=== PATIENT | male | born 1955 | race African-American/Black ===

== ENCOUNTER → 2016-05-28 | Outpatient (CLI) | payer OTHER ==
[2015-05-08 12:15] VITALS: BP 144/65
[~2016-05-28] MED LIST: GLIP5TAB10 PO; METF500T4 PO
[2016-05-28 15:09] LABS: BASO # 0.1 x10^3/uL (0.0-0.2); BASO % 1 % (0-3); EOS % 4 % (0-3); HEMATOCRIT 42.3 % (39.0-53.0); LYMPH # 1.8 x10^3/uL (1.0-4.8); LYMPH % 23 % (24-48); MEAN CORPUSCULAR HEMOGLOBIN 23 pg (25-35); MEAN CORPUSCULAR HGB CONC 31 g/dL (31-37); MEAN CORPUSCULAR VOLUME 74 fL (79-100); MONO % 8 % (0-9); NEUT % 64 % (31-73); PLATELET COUNT 189 x10^3/uL (140-400); RED BLOOD COUNT 5.73 x10^6/uL (4.30-5.70); RED CELL DISTRIBUTION WIDTH 15.7 % (11.5-14.5); WHITE BLOOD COUNT 7.7 x10^3/uL (4.0-11.0)
[2016-05-28 15:48] LABS: ALBUMIN 3.6 g/dL (3.4-5.0); CALCIUM 10.6 mg/dL (8.5-10.1); CREATININE 0.8 mg/dL (0.7-1.3); GFR 119.3; POTASSIUM 4.1 mmol/L (3.5-5.1); TOTAL BILIRUBIN 0.4 mg/dL (0.2-1.0); TOTAL PROTEIN 7.2 g/dL (6.4-8.2)
[2016-05-28 15:49] LABS: CHOLESTEROL/HDL RATIO 3.1
[2016-05-28 16:13] LABS: OVALOCYTES OCC; PLT ESTIMATE ADEQUATE (ADEQUATE); POLYCHROMASIA SLIGHT
[2016-05-28 16:14] LABS: SCHISTOCYTES OCC
== END | disposition home or self-care (01) ==
LOC: LAB 14:42
PROVIDERS: ATTEND Internal Medicine
DX: E11.65 Type 2 diabetes mellitus with hyperglycemia (principal); E21.3 Hyperparathyroidism, unspecified
CPT/HCPCS: 36415; 80053; 80061; 82043; 82550; 82570; 83036; 84443; 85007; 85027

== ENCOUNTER → 2016-12-18 | Outpatient (CLI) | payer OTHER ==
[2015-05-08 12:15] VITALS: BP 144/65
[2016-12-18 12:32] LABS: BASO % 1 % (0-3); EOS % 6 % (0-3); HEMATOCRIT 44.1 % (39.0-53.0); HEMOGLOBIN 13.9 g/dL (13.0-17.5); LYMPH # 1.7 x10^3/uL (1.0-4.8); LYMPH % 28 % (24-48); MEAN CORPUSCULAR HEMOGLOBIN 24 pg (25-35); MEAN CORPUSCULAR HGB CONC 31 g/dL (31-37); MEAN CORPUSCULAR VOLUME 75 fL (79-100); MONO % 9 % (0-9); NEUT % 57 % (31-73); PLATELET COUNT 174 x10^3/uL (140-400); RED CELL DISTRIBUTION WIDTH 15.8 % (11.5-14.5); WHITE BLOOD COUNT 6.2 x10^3/uL (4.0-11.0)
[2016-12-18 13:03] LABS: ALBUMIN/GLOBULIN RATIO 1.1 (1.0-1.7); CALCIUM 10.6 mg/dL (8.5-10.1); CREATININE 0.8 mg/dL (0.7-1.3); GFR 118.9; POTASSIUM 4.2 mmol/L (3.5-5.1); TOTAL BILIRUBIN 0.4 mg/dL (0.2-1.0); TOTAL PROTEIN 7.7 g/dL (6.4-8.2)
[2016-12-18 13:09] LABS: CHOLESTEROL/HDL RATIO 3.2
== END | disposition home or self-care (01) ==
LOC: LAB 12:04
PROVIDERS: ATTEND Internal Medicine
DX: E11.9 Type 2 diabetes mellitus without complications (principal); E21.3 Hyperparathyroidism, unspecified
CPT/HCPCS: 36415; 80053; 80061; 82043; 82550; 82570; 83036; 84443; 85025

== ENCOUNTER → 2017-07-02 | Outpatient (CLI) | payer OTHER ==
[2017-07-02 12:41] LABS: ADD MAN DIFF? NO
[2017-07-02 13:16] LABS: ALBUMIN 3.9 g/dL (3.4-5.0); ALBUMIN/GLOBULIN RATIO 1.1 (1.0-1.7); ALK PHOS 124 U/L (46-116); ALT (SGPT) 33 U/L (16-63); ANION GAP 4 (6-14); AST (SGOT) 24 U/L (15-37); BLOOD UREA NITROGEN 14 mg/dL (8-26); BUN/CREATININE RATIO 18 (6-20); CALCIUM 10.8 mg/dL (8.5-10.1); CARBON DIOXIDE 30 mmol/L (21-32); CHLORIDE 104 mmol/L (98-107); CREATININE 0.8 mg/dL (0.7-1.3); GFR 118.9; GLUCOSE 121 mg/dL (70-99); POTASSIUM 4.2 mmol/L (3.5-5.1); SODIUM 138 mmol/L (136-145); TOTAL BILIRUBIN 0.4 mg/dL (0.2-1.0); TOTAL PROTEIN 7.3 g/dL (6.4-8.2)
[2017-07-02 13:25] LABS: THYROID STIM HORMONE (TSH) 1.246 uIU/mL (0.358-3.74)
[2017-07-02 13:57] LABS: BASO % 1 % (0-3); EOS # 0.3 x10^3/uL (0.0-0.7); EOS % 5 % (0-3); HEMATOCRIT 43.1 % (39.0-53.0); HEMOGLOBIN 13.5 g/dL (13.0-17.5); LYMPH # 1.9 x10^3/uL (1.0-4.8); LYMPH % 28 % (24-48); MEAN CORPUSCULAR HEMOGLOBIN 23 pg (25-35); MEAN CORPUSCULAR HGB CONC 31 g/dL (31-37); MEAN CORPUSCULAR VOLUME 74 fL (79-100); MONO # 0.6 x10^3/uL (0.0-1.1); MONO % 9 % (0-9); NEUT # 3.8 x10^3uL (1.8-7.7); NEUT % 57 % (31-73); PLATELET COUNT 232 x10^3/uL (140-400); RED BLOOD COUNT 5.83 x10^6/uL (4.30-5.70); RED CELL DISTRIBUTION WIDTH 15.1 % (11.5-14.5); WHITE BLOOD COUNT 6.6 x10^3/uL (4.0-11.0)
[2017-07-03 04:21] LABS: HEMOGLOBIN A1C 6.4 % (4.8-5.6)
[2017-07-03 11:24] LABS: CREAT RD UR 38.8 mg/dL (Not Estab.); MICROALB RD UR 3.5 ug/mL (Not Estab.)
== END | disposition home or self-care (01) ==
LOC: LAB 12:25
DX: E11.9 Type 2 diabetes mellitus without complications (principal); I10 Essential (primary) hypertension
CPT/HCPCS: 36415; 80053; 82043; 82570; 83036; 83735; 84443; 85025

== ENCOUNTER → 2017-07-15 | Outpatient (CLI) | payer OTHER ==
[2017-07-15 15:14] LABS: ANION GAP 4 (6-14); BLOOD UREA NITROGEN 16 mg/dL (8-26); CALCIUM 10.9 mg/dL (8.5-10.1); CARBON DIOXIDE 30 mmol/L (21-32); CHLORIDE 105 mmol/L (98-107); CHOLESTEROL 164 mg/dL (0-200); CREATININE 0.9 mg/dL (0.7-1.3); GFR 103.8; GLUCOSE 98 mg/dL (70-99); HDLC 48 mg/dL (40-60); LDLC 102 mg/dL (0-100); NON-HDL CHOLESTEROL 116 mg/dL (0-129); POTASSIUM 4.6 mmol/L (3.5-5.1); SODIUM 139 mmol/L (136-145); TRIGLYCERIDES 72 mg/dL (0-150); VLDLC 14 mg/dL (0-40)
[2017-07-15 15:22] LABS: CHOLESTEROL/HDL RATIO 3.4
== END | disposition home or self-care (01) ==
LOC: LAB 14:23
DX: I10 Essential (primary) hypertension (principal); E78.6 Lipoprotein deficiency
CPT/HCPCS: 36415; 80048; 80061

== ENCOUNTER → 2017-07-17 | Outpatient (CLI) | payer OTHER | END | disposition home or self-care (01) | LOC: US 14:39 | DX: I10 Essential (primary) hypertension (principal); I65.23 Occlusion and stenosis of bilateral carotid arteries | CPT/HCPCS: 93880 ==

== ENCOUNTER → 2017-07-30 | Outpatient (CLI) | payer OTHER | END | disposition home or self-care (01) | LOC: NM 08:01 | DX: I35.0 Nonrheumatic aortic (valve) stenosis (principal); I10 Essential (primary) hypertension; E11.9 Type 2 diabetes mellitus without complications; R01.1 Cardiac murmur, unspecified | CPT/HCPCS: 93017; 93306 ==

== ENCOUNTER 2017-09-09 06:29 | Outpatient (CLI) | payer OTHER ==
[2017-09-09 07:01] LABS: HEMATOCRIT 42.3 % (39.0-53.0); HEMOGLOBIN 13.6 g/dL (13.0-17.5); MEAN CORPUSCULAR HEMOGLOBIN 24 pg (25-35); MEAN CORPUSCULAR HGB CONC 32 g/dL (31-37); MEAN CORPUSCULAR VOLUME 75 fL (79-100); PLATELET COUNT 193 x10^3/uL (140-400); RED BLOOD COUNT 5.63 x10^6/uL (4.30-5.70); WHITE BLOOD COUNT 7.7 x10^3/uL (4.0-11.0)
[2017-09-09 07:15] LABS: ANION GAP 8 (6-14); BLOOD UREA NITROGEN 20 mg/dL (8-26); CALCIUM 10.8 mg/dL (8.5-10.1); CARBON DIOXIDE 29 mmol/L (21-32); CHLORIDE 104 mmol/L (98-107); CREATININE 0.9 mg/dL (0.7-1.3); GFR 103.5; GLUCOSE 112 mg/dL (70-99); POTASSIUM 4.1 mmol/L (3.5-5.1); SODIUM 141 mmol/L (136-145)
[2017-09-09 07:24] LABS: PARTIAL THROMBOPLASTIN TIME 30 SEC (24-38); PROTHROMBIN TIME PATIENT 12.9 SEC (11.7-14.0)
[2017-09-09] MEDS ORDERED: IODIXANOL 320 MG/ML 100 ML VIAL. (07:25)
[2017-09-09] MEDS ORDERED: LIDOCAINE 2% 20 ML VIAL. (07:25)
[2017-09-09] MEDS ORDERED: HEPARIN for ARTERIAL LINE 1,500 ML (07:26)
[2017-09-09] MEDS ORDERED: fentaNYL PF VIAL 100 MCG/2 ML VIAL (08:08)
[2017-09-09] MEDS ORDERED: MIDAZOLAM HCL/PF 2 MG/2 ML VIAL. (08:09)
[2017-09-09] MEDS: IODIXANOL 320 MG/ML 100 ML VIAL. IART (10:02)
[2017-09-09] MEDS: fentaNYL PF VIAL 100 MCG/2 ML VIAL IV (10:03)
[2017-09-09] MEDS: MIDAZOLAM HCL/PF 2 MG/2 ML VIAL. IV (10:03)
[2017-09-09] MEDS: LIDOCAINE 2% 20 ML VIAL. IJ (10:03)
[2017-09-09] MEDS ORDERED: CONTRAST GIVEN. MC (10:15)
[2017-09-09] MEDS ORDERED: NITROGLYCERIN SUBLINGUAL 0.4 MG BOTTLE OF 25. SL (12:00)
[2017-09-09] MEDS ORDERED: 0.9 % SODIUM CHLORIDE 10 ML DISP.SYRIN. IV (12:00)
== END 2017-09-09 12:44 | disposition home or self-care (01) ==
LOC: CCL 06:29
DX: I25.10 Atherosclerotic heart disease of native coronary artery without angina pectoris (principal); I35.0 Nonrheumatic aortic (valve) stenosis; I10 Essential (primary) hypertension; E11.9 Type 2 diabetes mellitus without complications; E78.5 Hyperlipidemia, unspecified; M19.90 Unspecified osteoarthritis, unspecified site; Z79.84 Long term (current) use of oral hypoglycemic drugs
CPT/HCPCS: 36415; 80048; 85027; 85610; 85730; 93453; 93460; 99152; 99153; C1769; C1771; C1892; G0269; J1644; J2250; J3010

== ENCOUNTER → 2018-03-18 | Outpatient (CLI) | payer OTHER ==
[2017-09-09 11:40] VITALS: BP 167/81
[~2018-03-18] MED LIST changes: +CETI10TA22 PO; +LISI-338 PO; +METF500T16 PO; -METF500T4 PO
[2018-03-18 11:37] LABS: BASO # 0.1 x10^3/uL (0.0-0.2); BASO % 1 % (0-3); EOS # 0.4 x10^3/uL (0.0-0.7); EOS % 6 % (0-3); HEMATOCRIT 41.5 % (39.0-53.0); HEMOGLOBIN 13.4 g/dL (13.0-17.5); LYMPH # 1.7 x10^3/uL (1.0-4.8); LYMPH % 25 % (24-48); MEAN CORPUSCULAR HEMOGLOBIN 24 pg (25-35); MEAN CORPUSCULAR HGB CONC 32 g/dL (31-37); MEAN CORPUSCULAR VOLUME 74 fL (79-100); MONO # 0.6 x10^3/uL (0.0-1.1); MONO % 9 % (0-9); NEUT # 4.1 x10^3uL (1.8-7.7); NEUT % 59 % (31-73); PLATELET COUNT 194 x10^3/uL (140-400); RED BLOOD COUNT 5.58 x10^6/uL (4.30-5.70); RED CELL DISTRIBUTION WIDTH 15.5 % (11.5-14.5); WHITE BLOOD COUNT 6.9 x10^3/uL (4.0-11.0)
[2018-03-18 11:57] LABS: CALCIUM 10.9 mg/dL (8.5-10.1); CHOLESTEROL/HDL RATIO 3.1; CREATININE 0.9 mg/dL (0.7-1.3); GFR 103.5; POTASSIUM 4.2 mmol/L (3.5-5.1); TOTAL BILIRUBIN 0.4 mg/dL (0.2-1.0)
[2018-03-18 19:18] LABS: MICRO CREAT RATIO <10.0 mg/g creat (0.0-30.0); MICROALB RD UR <3.0 ug/mL (Not Estab.)
[2018-03-18 21:11] LABS: HEMOGLOBIN A1C 6.4 % (4.8-5.6)
== END | disposition home or self-care (01) ==
LOC: LAB 11:14
PROVIDERS: ATTEND Internal Medicine
DX: E11.9 Type 2 diabetes mellitus without complications (principal)
CPT/HCPCS: 36415; 80053; 80061; 82043; 82550; 82570; 83036; 85025

== ENCOUNTER → 2018-07-17 | Outpatient (CLI) | payer OTHER ==
[2017-09-09 11:40] VITALS: BP 167/81
--- NOTE | 2018-07-17 13:59 | CARD ---
MR#: [id number] Date of Study: 07/17/2018 Ordering Physician: ULYSSES DOMINGUEZ, Referring Physician: ULYSSES DOMINGUEZ, Tech: Hailey Santana MARGOTH APPROVED REPORT EXAM: Two-dimensional and M-mode echocardiogram with Doppler and color Doppler. Other Information Quality : GoodHR: 95bpm Rhythm : NSR INDICATION Aortic Valve Disease 2D DIMENSIONS RVDd2.9 (2.9-3.5cm)Left Atrium(2D)2.6 (1.6-4.0cm) IVSd1.1 (0.7-1.1cm)Aortic Root(2D)3.2 (2.0-3.7cm) LVDd3.8 (3.9-5.9cm)LVOT Diameter1.8 (1.8-2.4cm) PWd0.9 (0.7-1.1cm)LVDs2.4 (2.5-4.0cm) FS (%) 37.1 %SV42.8 ml LVEF(%)67.8 (>50%) M-Mode DIMENSIONS Left Atrium(MM)2.98 (2.5-4.0cm)Aortic Root2.67 (2.2-3.7cm) Aortic Valve AoV Peak Abdullahi.416.2cm/sAoV VTI87.7cm AO Peak GR.69.3mmHgLVOT Peak Abdullahi.100.2cm/s AO Mean GR.40mmHgAVA (VMAX)0.59cm2 DANIELLE (VTI)0.39zs9BI P 1/2 Llru790ue Mitral Valve MV E Kpnqmlrw731.5cm/sMV E Peak Gr.10mmHg MV DECEL DBOH490baET A Qmbwiixe116.5cm/s MV E Mean Gr.5mmHgE/A Ratio0.7 MV A Simqagpg26zr Pulmonary Valve PV Peak Yysszmao261.9cm/s LEFT VENTRICLE The left ventricle is normal size. Proximal septal thickening is noted. The left ventricular systolic function is normal and the ejection fraction is within normal range. The Ejection Fraction is 60-65% . There is normal LV segmental wall motion. Transmitral Doppler flow pattern is Grade I-abnormal rela xation pattern. RIGHT VENTRICLE The right ventricle is normal size. There is normal right ventricular wall thickness. The right ventr icular systolic function is normal. ATRIA The left atrium size is normal. The right atrium size is normal. The interatrial septum is intact wit h no evidence for an atrial septal defect or patent foramen ovale as noted on 2-D or Doppler imaging. AORTIC VALVE The aortic valve is severely calcified. The aortic valve is trileaflet. Doppler and Color Flow reveal ed mild aortic regurgitation. There is severe valvular aortic stenosis. Calculated aortic valve area is 0.6 cm2 with maximum pressure gradient of 69 mmHg and mean pressure gradient of 40 mmHg. MITRAL VALVE The mitral valve is calcified but opens well. There is no evidence of mitral valve prolapse. There is no mitral valve stenosis. Doppler and Color-flow revealed trace mitral regurgitation. TRICUSPID VALVE The tricuspid valve is normal in structure and function. Doppler and Color Flow revealed no tricuspid valve regurgitation noted. There is no tricuspid valve prolapse or vegetation. There is no tricuspid valve stenosis. PULMONIC VALVE The pulmonic valve is not well visualized. Doppler and Color Flow revealed no pulmonic valvular regur gitation. There is no pulmonic valvular stenosis. GREAT VESSELS The aortic root is normal in size. The ascending aorta is normal in size. The IVC is normal in size a nd collapses >50% with inspiration. PERICARDIAL EFFUSION There is no evidence of significant pericardial effusion. Critical Notification Critical Value: No <Conclusion> The left ventricular systolic function is normal and the ejection fraction is within normal range. Th e Ejection Fraction is 60-65%. There is normal LV segmental wall motion. Doppler and Color Flow revealed mild aortic regurgitation. There is severe valvular aortic stenosis. Calculated aortic valve area is 0.6 cm2 with maximum pressu re gradient of 69 mmHg and mean pressure gradient of 40 mmHg. Signed by : Ulysses Dominguez, Electronically Approved : 07/17/2018 13:58:46
== END | disposition home or self-care (01) ==
LOC: ECHO 10:50
PROVIDERS: ATTEND Internal Medicine Cardiovascular Disease
DX: I08.0 Rheumatic disorders of both mitral and aortic valves (principal); R00.8 Other abnormalities of heart beat
CPT/HCPCS: 93306

== ENCOUNTER → 2018-09-15 | Outpatient (CLI) | payer OTHER ==
[2017-09-09 11:40] VITALS: BP 167/81
[2018-09-15 11:32] LABS: BASO % 1 % (0-3); EOS # 0.4 x10^3/uL (0.0-0.7); EOS % 6 % (0-3); HEMATOCRIT 43.5 % (39.0-53.0); HEMOGLOBIN 13.9 g/dL (13.0-17.5); LYMPH % 29 % (24-48); MEAN CORPUSCULAR HEMOGLOBIN 24 pg (25-35); MEAN CORPUSCULAR HGB CONC 32 g/dL (31-37); MEAN CORPUSCULAR VOLUME 74 fL (79-100); MONO # 0.7 x10^3/uL (0.0-1.1); MONO % 10 % (0-9); NEUT # 3.7 x10^3uL (1.8-7.7); NEUT % 54 % (31-73); PLATELET COUNT 202 x10^3/uL (140-400); RED BLOOD COUNT 5.89 x10^6/uL (4.30-5.70); RED CELL DISTRIBUTION WIDTH 15.2 % (11.5-14.5); WHITE BLOOD COUNT 6.8 x10^3/uL (4.0-11.0)
[2018-09-15 11:57] LABS: ALBUMIN/GLOBULIN RATIO 1.1 (1.0-1.7); CALCIUM 10.9 mg/dL (8.5-10.1); CREATININE 0.9 mg/dL (0.7-1.3); GFR 103.1; TOTAL BILIRUBIN 0.4 mg/dL (0.2-1.0); TOTAL PROTEIN 7.8 g/dL (6.4-8.2)
[2018-09-15 11:59] LABS: CHOLESTEROL/HDL RATIO 2.9
[2018-09-15 21:07] LABS: CREAT RD UR 45.4 mg/dL (Not Estab.); MICRO CREAT RATIO 6.8 mg/g creat (0.0-30.0); MICROALB RD UR 3.1 ug/mL (Not Estab.)
[2018-09-16 13:19] LABS: HEMOGLOBIN A1C 7.2 % (4.8-5.6)
== END | disposition home or self-care (01) ==
LOC: LAB 11:01
PROVIDERS: ATTEND Internal Medicine
DX: E78.2 Mixed hyperlipidemia (principal); E11.9 Type 2 diabetes mellitus without complications
CPT/HCPCS: 36415; 80053; 80061; 82043; 82550; 82570; 83036; 84443; 85025

== ENCOUNTER → 2019-01-12 | Outpatient (CLI) | payer OTHER ==
[2017-09-09 11:40] VITALS: BP 167/81
--- NOTE | 2019-01-12 14:30 | RAD ---
MR#: [id number] Date of Study: 01/12/2019 Ordering Physician: ULYSSES DOMINGUEZ Referring Physician: STACIE BUENO Tech: APPROVED REPORT Test Type: Exercise Stress Nurse/Tech: ANDRESSA Nayak Test Indications: severe aortic stenosis Cardiac History: HTN, aortic stenosis, SEE EMR Medications: SEE EMR Medical History: SEE EMR, DM Resting ECG: SR, ST &T ABNORMALITY Resting Heart Rate: 89 bpm Resting Blood Pressure: 159/66mmHg Pretest Chest Pain: No chest pain Nurse/Tech Notes SR, MURMUR NOTED, LUNGS CTA Consent: The procedure was explained to the patient in lay terms. Informed consent was witnessed. Gary eout was entered into [employer]. History and Stress Test performed by RT Marissa (R) (N) Stress Symptoms No chest pain or symptoms. POST EXERCISE Reason for Termination: Reached target heart rate Target HR: 133 Max HR: 135 bpm 101% of Maximum Predicted HR: 133 bpm Exercise duration: 6:36 min:sec, 3 Stage Exercise capacity: 10METs Max Blood Pressure: 174/74mmHg Blood Pressure response to exercise: Normal blood pressure response during stress. Heart Rate response to exercise: NORMAL RESPONSE DURING STRESS Chest Pain: No. Arrhythmia: No. ST Change: Yes. ST DEPRESSION NOTED IN VARIOUS LEADS INTERPRETATION Stress EKG Conclusion: No evidence of acute ischemic changes. Conclusion 1. Baseline EKG with LVH and repol changes 2. Average exercise capacity reaching Stage 3 of the Sreedhar Treadmill protocol. 3. Normal BP response. 4. No significant ischemic EKG changes. 5. Low to moderate risk study Signed by : Ulysses Dominguez, Electronically Approved : 01/12/2019 14:29:59
== END | disposition home or self-care (01) ==
LOC: NM 08:47
PROVIDERS: ATTEND Internal Medicine Cardiovascular Disease
DX: I35.0 Nonrheumatic aortic (valve) stenosis (principal); I10 Essential (primary) hypertension
CPT/HCPCS: 93017

== ENCOUNTER → 2019-04-19 | Outpatient (CLI) | payer OTHER ==
[2017-09-09 11:40] VITALS: BP 167/81
[~2019-04-19] MED LIST changes: -CETI10TA22 PO; +CETI10TA24 PO
--- NOTE | 2019-04-19 10:19 | CARD ---
MR#: [id number] Date of Study: 04/19/2019 Ordering Physician: ULYSSES DOMINGUEZ, Referring Physician: ULYSSES DOMINGUEZ, Tech: Yasmine Santos APPROVED REPORT EXAM: Two-dimensional and M-mode echocardiogram with Doppler and color Doppler. Other Information Quality : AverageHR: 94bpm INDICATION Hypertension/HCVD RISK FACTORS Diabetes 2D DIMENSIONS RVDd3.1 (2.9-3.5cm)Left Atrium(2D)3.2 (1.6-4.0cm) IVSd0.9 (0.7-1.1cm)Aortic Root(2D)3.2 (2.0-3.7cm) LVDd4.4 (3.9-5.9cm)LVOT Diameter1.9 (1.8-2.4cm) PWd1.0 (0.7-1.1cm)LVDs3.1 (2.5-4.0cm) FS (%) 28.8 %SV49.0 ml LVEF(%)55.6 (>50%) Aortic Valve AoV Peak Abdullahi.387.6cm/sAoV VTI77.1cm AO Peak GR.60.1mmHgLVOT Peak Abdullahi.102.1cm/s LVOT VTI 24.46cmAO Mean GR.34mmHg DANIELLE (VMAX)0.13jt5EWG (VTI)0.94cm2 AI P 1/2 Aulr652oh Mitral Valve MV E Ylthyvbn914.6cm/sMV DECEL TQVE825dv MV A Ccomxcyx350.0cm/sMV DKS87rw E/A Ratio0.8MVA (PHT)3.50cm2 TDI E/Lateral E'17.5E/Medial E'16.3 Tricuspid Valve TR P. Vcsfpepy074ez/sRAP AINXJEYL7fqWv TR Peak Gr.60zrBaWZAY21axQh Pulmonary Vein S1 Jejswyae41.3cm/sD2 Meibyywu98.8cm/s PVa hdeccnzj926udyr LEFT VENTRICLE The left ventricle is normal size. There is normal left ventricular wall thickness. The left ventricu lar systolic function is normal. The Ejection Fraction is 60-65%. There is normal LV segmental wall m otion. Transmitral Doppler flow pattern is Grade I-abnormal relaxation pattern. RIGHT VENTRICLE The right ventricle is normal size. There is normal right ventricular wall thickness. The right ventr icular systolic function is normal. ATRIA The left atrium size is normal. The right atrium size is normal. The interatrial septum is intact wit h no evidence for an atrial septal defect or patent foramen ovale as noted on 2-D or Doppler imaging. AORTIC VALVE The aortic valve is severely calcified. Doppler and Color Flow revealed mild to moderate aortic regur gitation. Calculated aortic valve area is .92 cm2 with maximum pressure gradient of 68 mmHg and mean pressure gradient of 39 mmHg. There is moderate to severe valvular aortic stenosis. MITRAL VALVE The mitral valve is moderately thickened. There is no evidence of mitral valve prolapse. There is no mitral valve stenosis. Doppler and Color-flow revealed trace mitral regurgitation. TRICUSPID VALVE The tricuspid valve is normal in structure and function. Doppler and Color Flow revealed trace tricus pid regurgitation with an estimated PAP of 51 mmHg. There is no tricuspid valve stenosis. PULMONIC VALVE The pulmonic valve is not well visualized. Doppler and Color Flow revealed no pulmonic valvular regur gitation. GREAT VESSELS The aortic root is normal in size. The IVC is normal in size and collapses >50% with inspiration. PERICARDIAL EFFUSION There is no evidence of significant pericardial effusion. Critical Notification Critical Value: No <Conclusion> The left ventricular systolic function is normal. The Ejection Fraction is 60-65%. There is normal LV segmental wall motion. Transmitral Doppler flow pattern is Grade I-abnormal relaxation pattern. Moderate to severe valvular aortic stenosis with calculated DANIELLE 0.92 cm2 with mean pressure gradient of 39 mmHg. Mild to moderate aortic regurgitation. Trace mitral regurgitation. Trace tricuspid regurgitation with an estimated PAP of 51 mmHg. There is no evidence of significant pericardial effusion. Signed by : Ebenezer Proctor, Electronically Approved : 04/19/2019 10:19:02
== END | disposition home or self-care (01) ==
LOC: ECHO 08:26
PROVIDERS: ATTEND Internal Medicine Cardiovascular Disease
DX: I06.1 Rheumatic aortic insufficiency (principal); I11.9 Hypertensive heart disease without heart failure; E11.9 Type 2 diabetes mellitus without complications
CPT/HCPCS: 93306

== ENCOUNTER → 2019-05-17 | Outpatient (CLI) | payer OTHER ==
[2017-09-09 11:40] VITALS: BP 167/81
[2019-05-17 12:23] LABS: BASO % 1 % (0-3); EOS # 0.3 x10^3/uL (0.0-0.7); EOS % 5 % (0-3); HEMATOCRIT 40.9 % (39.0-53.0); LYMPH # 1.5 x10^3/uL (1.0-4.8); LYMPH % 26 % (24-48); MEAN CORPUSCULAR HEMOGLOBIN 23 pg (25-35); MEAN CORPUSCULAR HGB CONC 32 g/dL (31-37); MEAN CORPUSCULAR VOLUME 74 fL (79-100); MONO # 0.5 x10^3/uL (0.0-1.1); MONO % 9 % (0-9); NEUT # 3.5 x10^3/uL (1.8-7.7); NEUT % 59 % (31-73); PLATELET COUNT 187 x10^3/uL (140-400); RED BLOOD COUNT 5.54 x10^6/uL (4.30-5.70); WHITE BLOOD COUNT 5.9 x10^3/uL (4.0-11.0)
[2019-05-17 12:28] LABS: ALBUMIN 3.7 g/dL (3.4-5.0); CALCIUM 10.7 mg/dL (8.5-10.1); CREATININE 0.9 mg/dL (0.7-1.3); GFR 103.1; POTASSIUM 4.1 mmol/L (3.5-5.1); TOTAL BILIRUBIN 0.5 mg/dL (0.2-1.0); TOTAL PROTEIN 7.3 g/dL (6.4-8.2)
[2019-05-17 12:30] LABS: CHOLESTEROL/HDL RATIO 3.4
[2019-05-17 23:08] LABS: HEMOGLOBIN A1C 9.2 % (4.8-5.6)
== END | disposition home or self-care (01) ==
LOC: LAB 11:46
PROVIDERS: ATTEND Internal Medicine
DX: E11.9 Type 2 diabetes mellitus without complications (principal); E78.2 Mixed hyperlipidemia
CPT/HCPCS: 36415; 80053; 80061; 82043; 82550; 83036; 84443; 85025

== ENCOUNTER 2019-06-10 03:09 | Emergency (ER) | payer OTHER ==
[~2019-06-10] VITALS: Ht 175.3 cm; Wt 77.3 kg
[2019-06-10] MEDS ORDERED: PRED50TA PO (03:22)
[2019-06-10] MEDS ORDERED: AZIT250T PO (03:22)
--- NOTE | 2019-06-10 03:23 | PHYS DOC ---
Past Medical History Past Medical History: No Pertinent History Past Surgical History: No Surgical History Smoking Status: Never Smoker Alcohol Use: Occasionally Drug Use: None Adult General Chief Complaint Chief Complaint: Congestion HPI HPI Patient is a 63 year old white male who presents with complaint of sinus congestion and pressure 2 days duration with productive green/yellow sputum. No fever or chills. Has tried walg-deu-txpdztq medications without relief. No sick contacts. No cough or shortness of breath. Review of Systems Review of Systems All other ROS is negative unless otherwise stated in HPI Allergies Allergies Allergies Coded Allergies Type Severity Reaction Last Updated Verified No Known Allergies Allergy Unknown 05/08/15 Yes Physical Exam Physical Exam See above Constitutional: Well developed, well nourished, no acute distress, non-toxic appearance. [] HENT: Normocephalic, atraumatic, bilateral external ears normal, oropharynx moist, no oral exudates, erythematous nasal mucosa bilaterally with moderate congestion. No posterior pharynx erythema. Positive maxillary sinus tenderness. Eyes: PERRLA, EOMI, conjunctiva normal, no discharge. [] Neck: Normal range of motion, no tenderness, supple, no stridor. [] Cardiovascular:Heart rate regular rhythm, no murmur [] Lungs & Thorax: Bilateral breath sounds clear to auscultation [] Abdomen: Bowel sounds normal, soft, no tenderness, no masses, no pulsatile masses. [] Skin: Warm, dry, no erythema, no rash. [] Back: No tenderness, no CVA tenderness. [] Extremities: No tenderness, no cyanosis, no clubbing, ROM intact, no edema. [] Neurologic: Alert and oriented X 3, normal motor function, normal sensory function, no focal deficits noted. [] EKG EKG [] Radiology/Procedures Radiology/Procedures [] Course & Med Decision Making Course & Med Decision Making Pertinent Labs and Imaging studies reviewed. (See chart for details) [] Dragon Disclaimer Dragon Disclaimer This electronic medical record was generated, in whole or in part, using a voice recognition dictation system. Departure Departure Impression: Primary Impression: Acute sinusitis Disposition: 01 HOME, SELF-CARE Condition: STABLE Referrals: ELIAN LEON MD (PCP) Patient Instructions: Sinusitis Scripts Azithromycin (ZITHROMAX) 250 Mg Tablet 250 MG PO as directed for ANTI-BIOTIC, #6 TAB 0 Refills Take 2 PO x 1 days Then take 1 PO q 24 hour for the next 4 days Prov: KAYDEN CARLTON DO 06/10/19 Prednisone (PREDNISONE) 50 Mg Tablet 1 TAB PO DAILY, #5 TAB Prov: KAYDEN CARLTON DO 06/10/19 KAYDEN CARLTON DO Jun 10, 2019 03:23
[2019-06-10 03:50] VITALS: BP 191/84
== END 2019-06-10 03:50 | disposition home or self-care (01) ==
LOC: ER 03:09
DX: J01.00 Acute maxillary sinusitis, unspecified (principal)
CPT/HCPCS: 99283

== ENCOUNTER → 2019-06-28 | Outpatient (CLI) | payer OTHER ==
[2019-06-10 03:50] VITALS: BP 191/84
[~2019-06-28] MED LIST changes: +AZIT250T PO; +PRED50TA PO
[2019-06-28 10:46] LABS: CALCIUM 10.5 mg/dL (8.5-10.1); CREATININE 0.8 mg/dL (0.7-1.3); GFR 118.1; MAGNESIUM 1.7 mg/dL (1.8-2.4); PHOSPHORUS 2.7 mg/dL (2.6-4.7); POTASSIUM 4.3 mmol/L (3.5-5.1)
[2019-06-28 22:07] LABS: CREATININE PTH 0.81 mg/dL (0.76-1.27); PHOSPHORUS PTH 2.7 mg/dL (2.8-4.1); PTH INTACT 122 pg/mL (15-65)
== END | disposition home or self-care (01) ==
LOC: LAB 09:58
PROVIDERS: ATTEND Internal Medicine
DX: E83.52 Hypercalcemia (principal); N40.1 Benign prostatic hyperplasia with lower urinary tract symptoms
CPT/HCPCS: 36415; 80048; 83735; 83970; 84100; 84153; G0103

== ENCOUNTER → 2019-09-23 | Outpatient (CLI) | payer OTHER ==
[2019-09-23 11:49] LABS: ALBUMIN 3.7 g/dL (3.4-5.0); ALBUMIN/GLOBULIN RATIO 0.9 (1.0-1.7); CALCIUM 10.3 mg/dL (8.5-10.1); MAGNESIUM 1.9 mg/dL (1.8-2.4); POTASSIUM 4.2 mmol/L (3.5-5.1); TOTAL BILIRUBIN 0.5 mg/dL (0.2-1.0); TOTAL PROTEIN 7.6 g/dL (6.4-8.2)
[2019-09-23 11:50] LABS: BASO % 0 % (0-3); CHOLESTEROL/HDL RATIO 2.8; EOS # 0.3 x10^3/uL (0.0-0.7); EOS % 4 % (0-3); HEMATOCRIT 39.8 % (39.0-53.0); HEMOGLOBIN 12.7 g/dL (13.0-17.5); LYMPH # 1.6 x10^3/uL (1.0-4.8); LYMPH % 25 % (24-48); MEAN CORPUSCULAR HEMOGLOBIN 24 pg (25-35); MEAN CORPUSCULAR HGB CONC 32 g/dL (31-37); MEAN CORPUSCULAR VOLUME 75 fL (79-100); MONO # 0.6 x10^3/uL (0.0-1.1); MONO % 9 % (0-9); NEUT # 3.9 x10^3/uL (1.8-7.7); NEUT % 62 % (31-73); PLATELET COUNT 183 x10^3/uL (140-400); RED BLOOD COUNT 5.33 x10^6/uL (4.30-5.70); RED CELL DISTRIBUTION WIDTH 15.1 % (11.5-14.5); WHITE BLOOD COUNT 6.3 x10^3/uL (4.0-11.0)
== END | disposition home or self-care (01) ==
LOC: LAB 11:04
PROVIDERS: ATTEND Internal Medicine
DX: E11.9 Type 2 diabetes mellitus without complications (principal); E83.52 Hypercalcemia
CPT/HCPCS: 36415; 80053; 80061; 82043; 82550; 83036; 83735; 85025

== ENCOUNTER → 2019-10-19 | Outpatient (CLI) | payer OTHER ==
--- NOTE | 2019-10-19 13:38 | CARD ---
MR#: [id number] Date of Study: 10/19/2019 Ordering Physician: ULYSSES DOMINGUEZ, Referring Physician: ULYSSES DOMINGUEZ, Tech: Sybil Gonzalez [facility] APPROVED REPORT EXAM: Two-dimensional and M-mode echocardiogram with Doppler and color Doppler. Other Information Quality : Fair INDICATION Aortic Stenosis 2D DIMENSIONS RVDd2.6 (2.9-3.5cm)Left Atrium(2D)2.8 (1.6-4.0cm) IVSd0.9 (0.7-1.1cm)Aortic Root(2D)3.1 (2.0-3.7cm) LVDd4.1 (3.9-5.9cm)LVOT Diameter2.1 (1.8-2.4cm) PWd0.9 (0.7-1.1cm)LVDs2.8 (2.5-4.0cm) FS (%) 32.4 %SV44.8 ml LVEF(%)61.2 (>50%) M-Mode DIMENSIONS Aortic Cusp Exc1.07 (1.5-2.0cm) Aortic Valve AoV Peak Abdullahi.368.0cm/sAoV VTI83.8cm AO Peak GR.54.2mmHgLVOT Peak Abdullahi.113.4cm/s LVOT VTI 26.89cmAO Mean GR.30mmHg DANIELLE (VMAX)1.08bj0CSS (VTI)1.12cm2 AI P 1/2 Dgfl747ao Mitral Valve MV E Todbilqk148.4cm/sMV DECEL QLOY908xl MV A Hortrdun512.6cm/sMV YDQ64lr E/A Ratio0.9MVA (PHT)2.68cm2 TDI E/Lateral E'18.1E/Medial E'22.8 Pulmonary Vein S1 Xmrpdqqn12.0cm/sD2 Nsibnycr78.3cm/s LEFT VENTRICLE The left ventricle is normal size. There is normal left ventricular wall thickness. The left ventricu lar systolic function is normal. The Ejection Fraction is 60-65%. There is normal LV segmental wall m otion. Transmitral Doppler flow pattern is Grade I-abnormal relaxation pattern. RIGHT VENTRICLE The right ventricle is normal size. The right ventricular systolic function is normal. ATRIA The left atrium size is normal. The right atrium size is normal. The interatrial septum is intact wit h no evidence for an atrial septal defect or patent foramen ovale as noted on 2-D or Doppler imaging. AORTIC VALVE The aortic valve is calcified and displays decreased opening. Doppler and Color Flow revealed mild to moderate aortic regurgitation. Calculated aortic valve area is 1.16 cm2 with maximum pressure gradie nt of 56 mmHg and mean pressure gradient of 33 mmHg. Doppler and color-flow analysis revealed moderat e aortic stenosis. MITRAL VALVE The mitral valve is calcified but opens well. Mitral annular calcification is mild to moderate. There is no evidence of mitral valve prolapse. There is no mitral valve stenosis. Doppler and Color-flow r evealed trace mitral regurgitation. TRICUSPID VALVE The tricuspid valve is normal in structure and function. Doppler and Color Flow revealed trace tricus pid valve regurgitation. There is no tricuspid valve stenosis. PULMONIC VALVE The pulmonic valve is not well visualized. Doppler and Color Flow revealed no pulmonic valvular regur gitation. There is no pulmonic valvular stenosis. GREAT VESSELS The aortic root is normal in size. The ascending aorta is not well seen. The IVC is normal in size an d collapses >50% with inspiration. PERICARDIAL EFFUSION There is no evidence of significant pericardial effusion. Critical Notification Critical Value: No <Conclusion> The left ventricular systolic function is normal. The Ejection Fraction is 60-65%. There is normal LV segmental wall motion. Transmitral Doppler flow pattern is Grade I-abnormal relaxation pattern. Moderate aortic stenosis. Calculated DANIELLE is 1.16 cm2 with maximum pressure gradient of 56 mmHg and m malick pressure gradient of 33 mmHg. Mild to moderate aortic regurgitation. Trace mitral regurgitation. Trace tricuspid valve regurgitation. There is no evidence of significant pericardial effusion. Signed by : Ebenezer Proctor, Electronically Approved : 10/19/2019 13:37:45
== END | disposition home or self-care (01) ==
LOC: ECHO 08:37
PROVIDERS: ATTEND Internal Medicine Cardiovascular Disease
DX: I08.0 Rheumatic disorders of both mitral and aortic valves (principal); I10 Essential (primary) hypertension
CPT/HCPCS: 93306

== ENCOUNTER → 2019-10-28 | Outpatient (CLI) | payer OTHER ==
[~2019-10-28] MED LIST changes: -CETI10TA24 PO; +CETI10TA74 PO
--- NOTE | 2019-10-28 13:55 | RAD ---
Thyroid ultrasound 10/28/2019 CLINICAL HISTORY: Hypercalcemia. TECHNIQUE: A real-time ultrasound examination of the thyroid gland was performed. Multiple images were obtained. FINDINGS: No previous imaging studies are available for comparison. The thyroid gland is mildly enlarged and heterogeneous. The right lobe of the thyroid gland measures 4.6 x 2.0 x 1.8 cm in longitudinal, transverse, and AP dimensions. The left lobe of the thyroid gland measures 3.2 x 1.5 x 1.1 cm in size. The isthmus measures 2.9 mm in thickness. Numerous nodules which vary from 3 mm to 1.3 cm in size are seen scattered throughout both lobes of the thyroid gland consistent with a multinodular goiter. The majority of these nodules are cystic, spongiform or slightly complex. The largest nodule (which measures 1.3 cm greatest diameter) is well-defined and is complex with a hyperechoic solid component. It is located within the inferior lateral aspect of the right lobe of the thyroid gland. These nodules are consistent with TI-RADS Category 1 and 2 (benign) lesions. No abnormal soft tissue mass is seen to suggest evidence of a parathyroid adenoma. IMPRESSION: 1. Findings consistent with a multinodular goiter. 2. There is no sonographic evidence of a parathyroid adenoma. Electronically signed by: Sergey Wood MD (10/28/2019 1:52 PM) [id number]
== END | disposition home or self-care (01) ==
LOC: US 09:42
PROVIDERS: ATTEND Internal Medicine
DX: E04.2 Nontoxic multinodular goiter (principal); E11.9 Type 2 diabetes mellitus without complications; E83.52 Hypercalcemia
CPT/HCPCS: 76536

== ENCOUNTER → 2020-01-13 | Outpatient (CLI) | payer OTHER ==
[2020-01-13 11:15] LABS: ALBUMIN 3.7 g/dL (3.4-5.0); ALBUMIN/GLOBULIN RATIO 1.1 (1.0-1.7); CALCIUM 10.4 mg/dL (8.5-10.1); CREATININE 0.8 mg/dL (0.7-1.3); GFR 117.8; POTASSIUM 4.4 mmol/L (3.5-5.1); TOTAL BILIRUBIN 0.4 mg/dL (0.2-1.0); TOTAL PROTEIN 7.1 g/dL (6.4-8.2)
[2020-01-14 00:08] LABS: HEMOGLOBIN A1C 7.1 % (4.8-5.6)
== END ==
LOC: LAB 10:13
PROVIDERS: ATTEND Internal Medicine
DX: E21.3 Hyperparathyroidism, unspecified (principal); E11.65 Type 2 diabetes mellitus with hyperglycemia
CPT/HCPCS: 36415; 80053; 83036

== ENCOUNTER → 2020-06-13 | Outpatient (CLI) | payer OTHER ==
[~2020-06-13] MED LIST changes: -LISI-338 PO; +LISI-517 PO
[2020-06-13 11:01] LABS: BASO % 0 % (0-3); EOS # 0.3 x10^3/uL (0.0-0.7); EOS % 4 % (0-3); HEMATOCRIT 39.5 % (39.0-53.0); HEMOGLOBIN 12.6 g/dL (13.0-17.5); LYMPH # 1.5 x10^3/uL (1.0-4.8); LYMPH % 25 % (24-48); MEAN CORPUSCULAR HEMOGLOBIN 24 pg (25-35); MEAN CORPUSCULAR HGB CONC 32 g/dL (31-37); MEAN CORPUSCULAR VOLUME 74 fL (79-100); MONO # 0.5 x10^3/uL (0.0-1.1); MONO % 9 % (0-9); NEUT # 3.7 x10^3/uL (1.8-7.7); NEUT % 62 % (31-73); PLATELET COUNT 184 x10^3/uL (140-400); RED BLOOD COUNT 5.36 x10^6/uL (4.30-5.70); RED CELL DISTRIBUTION WIDTH 14.8 % (11.5-14.5); WHITE BLOOD COUNT 5.9 x10^3/uL (4.0-11.0)
[2020-06-13 11:22] LABS: ALBUMIN 3.7 g/dL (3.4-5.0); CALCIUM 10.4 mg/dL (8.5-10.1); POTASSIUM 4.5 mmol/L (3.5-5.1); TOTAL BILIRUBIN 0.4 mg/dL (0.2-1.0); TOTAL PROTEIN 7.3 g/dL (6.4-8.2)
[2020-06-13 11:23] LABS: MAGNESIUM 1.8 mg/dL (1.8-2.4)
[2020-06-13 11:24] LABS: CHOLESTEROL/HDL RATIO 2.9
[2020-06-13 21:08] LABS: CREAT RD UR 93.7 mg/dL (Not Estab.); MICROALB RD UR 8.3 ug/mL (Not Estab.)
[2020-06-14 01:10] LABS: HEMOGLOBIN A1C 7.7 % (4.8-5.6)
== END ==
LOC: LAB 10:34
PROVIDERS: ATTEND Internal Medicine
DX: E11.65 Type 2 diabetes mellitus with hyperglycemia (principal); E04.2 Nontoxic multinodular goiter; I10 Essential (primary) hypertension
CPT/HCPCS: 80053; 80061; 82043; 82550; 82570; 83036; 83735; 84443; 85025

== ENCOUNTER → 2020-09-06 | Outpatient (CLI) | payer OTHER ==
--- NOTE | 2020-09-07 18:07 | CARD ---
MR#: [id number] Date of Study: 09/06/2020 Ordering Physician: ULYSSES DOMINGUEZ, Referring Physician: ULYSSES DOMINGUEZ, Tech: APPROVED REPORT EXAM: Two-dimensional and M-mode echocardiogram with Doppler and color Doppler. Other Information Quality : AverageHR: 91bpm Rhythm : NSR INDICATION Dyspnea RISK FACTORS Hypertension Hyperlipidemia Diabetes 2D DIMENSIONS RVDd2.9 (2.9-3.5cm)Left Atrium(2D)3.2 (1.6-4.0cm) IVSd1.1 (0.7-1.1cm)Aortic Root(2D)3.3 (2.0-3.7cm) LVDd3.6 (3.9-5.9cm)LVOT Diameter2.1 (1.8-2.4cm) PWd1.2 (0.7-1.1cm)LVDs2.9 (2.5-4.0cm) FS (%) 19.3 %SV22.8 ml Aortic Valve AoV Peak Abdullahi.402.0cm/sAoV TIG196.7cm AO Peak GR.64.6mmHgLVOT Peak Abdullahi.104.7cm/s AO Mean GR.39mmHgAVA (VMAX)0.93cm2 AI P 1/2 Jrti648qw Mitral Valve MV E Ufvanmid62.9cm/sMV DECEL ZZAB034am MV A Lyhadxep220.1cm/sE/A Ratio0.6 Pulmonary Valve PV Peak Bbgjlwcp651.2cm/s Tricuspid Valve RAP VYOCHXXB4esXl Pulmonary Vein S1 Ppbrqgpf57.0cm/sD2 Nbjhzakm16.8cm/s PVa aihtbyjz979fnsg LEFT VENTRICLE The left ventricle is normal size. There is mild concentric left ventricular hypertrophy. The left ve ntricular systolic function is normal and the ejection fraction is within normal range. Torcular ejec tion fraction is 55 to 60%. No regional wall motion abnormalities noted. Tissue Doppler imaging revea ls abnormal left ventricular diastolic dysfunction. No left ventricle thrombus noted on this study. T here is no ventricular septal defect visualized. There is no left ventricular aneurysm. There is no m ass noted in the left ventricle. RIGHT VENTRICLE The right ventricle is normal size. There is normal right ventricular wall thickness. The right ventr icular systolic function is normal. ATRIA The left atrium size is normal. The right atrium size is normal. The interatrial septum is intact wit h no evidence for an atrial septal defect or patent foramen ovale as noted on 2-D or Doppler imaging. AORTIC VALVE The aortic valve is severely calcified. Doppler and Color Flow revealed trace to mild aortic regurgit ation. The aortic valve is heavily calcified with difficult imaging. There is moderately severe to s evere aortic stenosis. MITRAL VALVE Mitral annular calcification is mild. There is no evidence of mitral valve prolapse. There is no mitr al valve stenosis. Doppler and Color-flow revealed trace mitral regurgitation. TRICUSPID VALVE The tricuspid valve is normal in structure and function. Doppler and Color Flow revealed trace tricus pid regurgitation. PULMONIC VALVE The pulmonary valve is normal in structure and function. GREAT VESSELS The aortic root is normal in size. The ascending aorta is normal in size. The pulmonary artery is nor mal. The IVC is normal in size and collapses >50% with inspiration. PERICARDIAL EFFUSION There is no evidence of significant pericardial effusion. Critical Notification Critical Value: No <Conclusion> The left ventricle is normal size. The left ventricular systolic function is normal and the ejection fraction is within normal range. Torcular ejection fraction is 55 to 60%. There is mild concentric left ventricular hypertrophy. Doppler and Color Flow revealed trace to mild aortic regurgitation. The aortic valve is heavily calcified with difficult imaging. There is moderately severe to severe aortic stenosis. Doppler and Color-flow revealed trace mitral regurgitation. Doppler and Color Flow revealed trace tricuspid regurgitation. Signed by : Silvano Ibrahim MD Electronically Approved : 09/07/2020 18:07:02
== END ==
LOC: ECHO 08:51
PROVIDERS: ATTEND Internal Medicine Cardiovascular Disease
DX: I08.0 Rheumatic disorders of both mitral and aortic valves (principal)
CPT/HCPCS: 93306

== ENCOUNTER → 2021-01-11 | Outpatient (CLI) | payer OTHER ==
[2021-01-11 08:42] LABS: BASO % 1 % (0-3); EOS # 0.2 x10^3/uL (0.0-0.7); EOS % 4 % (0-3); HEMATOCRIT 38.6 % (39.0-53.0); LYMPH # 1.6 x10^3/uL (1.0-4.8); LYMPH % 26 % (24-48); MEAN CORPUSCULAR HEMOGLOBIN 23 pg (25-35); MEAN CORPUSCULAR HGB CONC 31 g/dL (31-37); MEAN CORPUSCULAR VOLUME 75 fL (79-100); MONO # 0.6 x10^3/uL (0.0-1.1); MONO % 9 % (0-9); NEUT # 3.9 x10^3/uL (1.8-7.7); NEUT % 61 % (31-73); PLATELET COUNT 207 x10^3/uL (140-400); RED BLOOD COUNT 5.16 x10^6/uL (4.30-5.70); RED CELL DISTRIBUTION WIDTH 15.4 % (11.5-14.5); WHITE BLOOD COUNT 6.4 x10^3/uL (4.0-11.0)
[2021-01-11 09:12] LABS: ALBUMIN 3.7 g/dL (3.4-5.0); CALCIUM 10.2 mg/dL (8.5-10.1); CREATININE 0.9 mg/dL (0.7-1.3); GFR 102.5; TOTAL BILIRUBIN 0.4 mg/dL (0.2-1.0); TOTAL PROTEIN 7.4 g/dL (6.4-8.2)
[2021-01-11 09:15] LABS: CHOLESTEROL/HDL RATIO 3.6
[2021-01-11 09:22] LABS: THYROID STIM HORMONE (TSH) 1.709 uIU/mL (0.358-3.74)
[2021-01-12 00:08] LABS: CREAT RD UR 59.3 mg/dL (Not Estab.); HEMOGLOBIN A1C 6.6 % (4.8-5.6); MICROALB RD UR 6.7 ug/mL (Not Estab.)
== END ==
LOC: LAB 08:07
PROVIDERS: ATTEND Internal Medicine
DX: E11.65 Type 2 diabetes mellitus with hyperglycemia (principal); E04.2 Nontoxic multinodular goiter
CPT/HCPCS: 80053; 80061; 82043; 82550; 82570; 83036; 84439; 84443; 85025

== ENCOUNTER 2021-03-27 21:01 | Inpatient (IN) | payer OTHER ==
[~2021-03-27] VITALS: Ht 170.2 cm; Wt 80.7 kg
[~2021-03-27 21:01] MED LIST changes: -LISI-517 PO; +LISI5TAB15 PO
[2021-03-27] MEDS ORDERED: ONDANSETRON PF 4 MG/2 ML VIAL. ONE (23:00)
[2021-03-27 23:07] LABS: BASO % 0 % (0-3); EOS % 0 % (0-3); HEMATOCRIT 40.7 % (39.0-53.0); HEMOGLOBIN 12.7 g/dL (13.0-17.5); LYMPH # 0.6 x10^3/uL (1.0-4.8); LYMPH % 4 % (24-48); MEAN CORPUSCULAR HEMOGLOBIN 23 pg (25-35); MEAN CORPUSCULAR HGB CONC 31 g/dL (31-37); MEAN CORPUSCULAR VOLUME 74 fL (79-100); MONO # 0.6 x10^3/uL (0.0-1.1); MONO % 5 % (0-9); NEUT # 12.1 x10^3/uL (1.8-7.7); NEUT % 91 % (31-73); PLATELET COUNT 197 x10^3/uL (140-400); RED BLOOD COUNT 5.51 x10^6/uL (4.30-5.70); WHITE BLOOD COUNT 13.3 x10^3/uL (4.0-11.0)
[2021-03-27 23:12] LABS: BILIRUBIN,URINE NEGATIVE (NEG); CLARITY,URINE CLEAR; COLOR,URINE YELLOW; NITRITE,URINE NEGATIVE (NEG); PROTEIN,URINE 30 mg/dL (NEG-TRACE); UROBILINOGEN,URINE 0.2 mg/dL (0.2 mg/dL)
[2021-03-27 23:19] LABS: CALCIUM 10.9 mg/dL (8.5-10.1); CREATININE 0.9 mg/dL (0.7-1.3); GFR 102.5; POTASSIUM 3.9 mmol/L (3.5-5.1)
[2021-03-27 23:25] LABS: ALBUMIN 3.9 g/dL (3.4-5.0); ALBUMIN/GLOBULIN RATIO 0.9 (1.0-1.7); TOTAL BILIRUBIN 0.5 mg/dL (0.2-1.0); TOTAL PROTEIN 8.1 g/dL (6.4-8.2)
[2021-03-27 23:26] LABS: BACTERIA,URINE 0 /HPF (0-FEW)
[2021-03-27] MEDS ORDERED: IV NORMAL SALINE 1000ML BAG 1,000 ML IV ONE (23:30)
[2021-03-27] MEDS ORDERED: ONDANSETRON PF 4 MG/2 ML VIAL. IVP ONE (23:30)
[2021-03-27] MEDS ORDERED: MORPHINE SULFATE 4 MG/ML INJ. IVP ONE (23:30)
[2021-03-27 23:52] LABS: % BANDS 9 % (0-9); % LYMPHS 3 % (24-48); % MONOS 1 % (0-10); % SEGS 87 % (35-66)
[2021-03-27 23:53] LABS: MICROCYTOSIS SLIGHT; PLT ESTIMATE ADEQUATE (ADEQUATE); POLYCHROMASIA SLIGHT
[2021-03-28] VITALS (7 sets, daily range): BP systolic 137–157; BP diastolic 63–75
--- NOTE | 2021-03-28 00:08 | RAD ---
EXAM: RIGHT UPPER QUADRANT ULTRASOUND. HISTORY: Right upper quadrant/gastric pain. Vomiting. COMPARISON: None. FINDINGS: Sonographic evaluation of the right upper quadrant was performed. The liver appears normal in parenchymal echotexture. There are no focal lesions. There are gallstones in the gallbladder neck. There is no pericholecystic fluid or wall thickening. T he gallbladder is distended. There is no sonographic Ellis sign. The common duct measures 5 mm. The visualized portions of the head and body of the pancreas reveal no abnormality. The right kidney measures 10.4 cm. Cortical thickness and echogenicity are preserved. There is no hyd ronephrosis. The visualized portions of the abdominal aorta and inferior vena cava are grossly patent and normal i n caliber. IMPRESSION: 1. Cholelithiasis with gallbladder distention. No pericholecystic fluid or wall thickening. Electronically signed by: Hernandez Camarena MD (03/28/2021 12:06 AM) [facility]
--- NOTE | 2021-03-28 00:37 | EKG ---
[facility] [address] [place] [address] Test Date: 2021-03-27 Test Time: 23:16:12 Pat Name: VEL LOCKETT Department: Room: Gender: M Employment Counselor: : 1955 Requested By: JUANA MALLORY Order Number: [id number] Reading MD: Andres Mendez MD Measurements Intervals [place] Rate: 105 P: 34 AK: 202 QRS: 58 QRSD: 84 T: -88 QT: 300 QTc: 400 Interpretive Statements SINUS TACHYCARDIA PROLONGED AK INTERVAL LVH WITH REPOLARIZATION ABNORMALITY ABNORMAL ECG Electronically Signed On 04-02-2021 14:58:18 [employer] by Andres Mendez MD
[2021-03-28] MEDS ORDERED: CONTRAST GIVEN. MC PRN (00:45)
[2021-03-28] MEDS ORDERED: IOHEXOL 300 MG/ML 100ML VIAL. IV ONE (01:00)
--- NOTE | 2021-03-28 01:59 | PHYS DOC ---
Past Medical History Past Medical History: Diabetes-Type II, High Cholesterol, Hypertension Past Surgical History: No Surgical History Smoking Status: Never Smoker Alcohol Use: Occasionally Drug Use: None Adult General Chief Complaint Chief Complaint: ABDOMINAL PAIN HPI HPI The patient is a 65-year-old male with a history of hypertension, hyperlipidemia and pbi-[id number] diabetes. He presents for evaluation of epigastric and right upper quadrant discomfort beginning about 18 hours prior to arrival. Associated nausea with a number of episodes of nonbloody vomiting since onset of symptoms. Discomfort does not radiate. Nothing seems to make it better or worse. Severity 8 out of 10 at present. No associated fevers, hematemesis, hematochezia or melena, upper respiratory congestion/rhinorrhea, cough, sore throat, shortness of breath or chest pain of any kind, lower abdominal pain of any kind, flank pain, midline back pain, dysuria, hematuria, polyuria or oliguria, changes in bowel habits. Patient reports never having had similar discomfort in the past. Patient is alert and pleasantly and appropriately interactive and in no acute distress. Vital signs are generally appropriate here. Review of Systems Review of Systems A 12 point review of systems was completed and was negative except where noted in HPI above. Current Medications Current Medications Current Medications Medications (Trade) Dose Ordered Sig/Pancho Start Time Stop Time Status Last Admin Dose Admin Morphine Sulfate (Morphine Sulfate) 4 mg 1X ONCE 03/27/21 23:30 03/27/21 23:31 DC 03/27/21 23:08 4 MG Ondansetron HCl (Zofran) 4 mg 1X ONCE 03/27/21 23:30 03/27/21 23:31 DC 03/27/21 23:04 4 MG Sodium Chloride 1,000 ml @ 1,000 mls/hr 1X ONCE 03/27/21 23:30 03/28/21 00:29 DC 03/27/21 23:08 1,000 MLS/HR Allergies Allergies Allergies Coded Allergies Type Severity Reaction Last Updated Verified No Known Allergies Allergy Unknown 05/08/15 Yes Physical Exam Physical Exam Older black male appearing nontoxic and in no acute distress. Head is normocephalic and atraumatic. Neck is supple and nontender. Oropharynx is moist. Lungs are clear to auscultation at all stations. There is a normal S1 and S2 without rubs or gallops and capillary refill is appropriate, less than 2 seconds globally. Abdomen is soft and nondistended with mild right upper quadrant and epigastric tenderness to palpation without rebound or guarding. Skin is warm and dry without cyanosis, clubbing or edema. Psychiatrically, the patient demonstrates appropriate mood and affect and is alert. Current Patient Data Vital Signs Vital Signs Date Time Temp Pulse Resp B/P (MAP) Pulse Ox O2 Delivery O2 Flow Rate FiO2 03/27/21 23:08 16 99 Room Air 03/27/21 22:24 98.4 113 213/99 (137) 98.4 Lab Values Laboratory Tests Test 03/27/21 22:14 03/27/21 22:30 Urine Collection Type Unknown Urine Color Yellow Urine Clarity Clear Urine pH 5.0 (<5.0-8.0) Urine Specific [place] >=1.030 (1.000-1.030) Urine Protein 30 mg/dL (NEG-TRACE) Urine Glucose (UA) >=1000 mg/dL (NEG) Urine Ketones (Stick) Trace mg/dL (NEG) Urine Blood Moderate (NEG) Urine Nitrite Negative (NEG) Urine Bilirubin Negative (NEG) Urine Urobilinogen Dipstick 0.2 mg/dL (0.2 mg/dL) Urine Leukocyte Esterase Negative (NEG) Urine RBC 11-20 /HPF (0-2) Urine WBC 1-4 /HPF (0-4) Urine Squamous Epithelial Cells Few /LPF Urine Bacteria 0 /HPF (0-FEW) White Blood Count 13.3 x10^3/uL (4.0-11.0) H Red Blood Count 5.51 x10^6/uL (4.30-5.70) Hemoglobin 12.7 g/dL (13.0-17.5) L Hematocrit 40.7 % (39.0-53.0) Mean Corpuscular Volume 74 fL (79-100) L Mean Corpuscular Hemoglobin 23 pg (25-35) L Mean Corpuscular Hemoglobin Concent 31 g/dL (31-37) Red Cell Distribution Width 15.0 % (11.5-14.5) H Platelet Count 197 x10^3/uL (140-400) Neutrophils (%) (Auto) 91 % (31-73) H Lymphocytes (%) (Auto) 4 % (24-48) L Monocytes (%) (Auto) 5 % (0-9) Eosinophils (%) (Auto) 0 % (0-3) Basophils (%) (Auto) 0 % (0-3) Neutrophils # (Auto) 12.1 x10^3/uL (1.8-7.7) H Lymphocytes # (Auto) 0.6 x10^3/uL (1.0-4.8) L Monocytes # (Auto) 0.6 x10^3/uL (0.0-1.1) Eosinophils # (Auto) 0.0 x10^3/uL (0.0-0.7) Basophils # (Auto) 0.0 x10^3/uL (0.0-0.2) Segmented Neutrophils % 87 % (35-66) H Band Neutrophils % 9 % (0-9) Lymphocytes % 3 % (24-48) L Monocytes % 1 % (0-10) Platelet Estimate Adequate (ADEQUATE) Polychromasia Slight Microcytosis Slight Sodium Level 134 mmol/L (136-145) L Potassium Level 3.9 mmol/L (3.5-5.1) Chloride Level 98 mmol/L (98-107) Carbon Dioxide Level 27 mmol/L (21-32) Anion Gap 9 (6-14) Blood Urea Nitrogen 10 mg/dL (8-26) Creatinine 0.9 mg/dL (0.7-1.3) Estimated GFR (Cockcroft-Gault) 102.5 BUN/Creatinine Ratio 11 (6-20) Glucose Level 278 mg/dL (70-99) H Lactic Acid Level 1.7 mmol/L (0.4-2.0) Calcium Level 10.9 mg/dL (8.5-10.1) H Total Bilirubin 0.5 mg/dL (0.2-1.0) Aspartate Amino Transferase (AST) 20 U/L (15-37) Alanine Aminotransferase (ALT) 42 U/L (16-63) Alkaline Phosphatase 135 U/L (46-116) H Troponin I High Sensitivity 25 ng/L (4-75) Total Protein 8.1 g/dL (6.4-8.2) Albumin 3.9 g/dL (3.4-5.0) Albumin/Globulin Ratio 0.9 (1.0-1.7) L Lipase 100 U/L (73-393) Laboratory Tests 03/27/21 22:30 Laboratory Tests 03/27/21 22:30 EKG EKG Sinus rhythm, rate 105, no acute ST elevation or depression, VA 202, QRS 84, QTc 400, EP interpretation. Nonischemic tracing, intervals appropriate. Radiology/Procedures Radiology/Procedures EXAM: RIGHT UPPER QUADRANT ULTRASOUND. HISTORY: Right upper quadrant/gastric pain. Vomiting. COMPARISON: None. FINDINGS: Sonographic evaluation of the right upper quadrant was performed. The liver appears normal in parenchymal echotexture. There are no focal lesions. There are gallstones in the gallbladder neck. There is no pericholecystic fluid or wall thickening. The gallbladder is distended. There is no sonographic Ellis sign. The common duct measures 5 mm. The visualized portions of the head and body of the pancreas reveal no abnormality. The right kidney measures 10.4 cm. Cortical thickness and echogenicity are preserved. There is no hydronephrosis. The visualized portions of the abdominal aorta and inferior vena cava are grossly patent and normal in caliber. IMPRESSION: 1. Cholelithiasis with gallbladder distention. No pericholecystic fluid or wall thickening. Electronically signed by: Hernandez Camarena MD (03/28/2021 12:06 AM) [facility] DICTATED and SIGNED BY: LINDA CAMARENA MD DATE: 03/27/21 [id number] 0 Course & Med Decision Making Course & Med Decision Making Older gentleman presenting for evaluation of sharp, focal right upper quadrant and epigastric discomfort with onset over the last 18 hours or so. Associated nausea with a number of episodes of nonbloody vomiting. Patient has a leukocytosis and an abnormal gallbladder ultrasound, with a stone in the gallbl adder neck and marked gallbladder distention. He is certainly focally tender over the right upper quadrant. Given severity of symptoms, constant nature of symptoms over the last 18 hours and leukocytosis, cannot clinically exclude acute cholecystitis at this time. May also represent symptomatic c holelithiasis. Will cover with a dose of Zosyn and will admit for surgical consultation and further care. Dr. Knox graciously accepts on behalf of Dr. Dan. Rosa Elena Disclaimer Rosa Elena Disclaimer This electronic medical record was generated, in whole or in part, using a voice recognition dictation system. Departure Departure Impression: Primary Impression: Acute cholecystitis Disposition: ADMITTED INPATIENT Condition: STABLE Referrals: ELIAN DAN MD (PCP) JUANA MALLORY MD Mar 28, 2021 01:59
[2021-03-28] MEDS ORDERED: ONDANSETRON PF 4 MG/2 ML VIAL. IVP PRN ×2 (02:00→10:00)
[2021-03-28] MEDS: PIPERACILLIN/TAZOBACTAM 3.375 GM in IV NORMAL SALINE 50ML 50 ML IV SCH ×4 (02:18→17:17)
[2021-03-28] MEDS ORDERED: IV DEXTROSE 5%-LACT RINGERS 1,000 ML IV ONE (02:30)
--- NOTE | 2021-03-28 02:42 | RAD ---
EXAM: CT ABDOMEN/PELVIS WITH CONTRAST. HISTORY: Leukocytosis, abdominal pain. TECHNIQUE: Computed tomography of the abdomen and pelvis was performed after the intravenous administ ration of iodinated contrast. One or more of the following individualized dose reduction techniques w ere utilized for this examination: 1. Automated exposure control. 2. Adjustment of the mA and/or kV according to patient size. 3. Use of iterative reconstruction technique. COMPARISON: None. FINDINGS: Lung windows through the visualized portions of the bases reveal mild groundglass infiltrat es in both lower lobes. Bone windows reveal no suspicious lesions. There is grade 1 anterolisthesis a t L4-5 from facet osteoarthritis. There is at least moderate central canal stenosis at this level. Gallstones are noted. There are calcified granulomas in the spleen. The liver, pancreas, and adrenal glands are unremarkable. There are small cysts bilaterally the kidneys. The appendix is not inflamed. Colonic diverticulosis is moderate. A small umbilical hernia contains o nly fat. A small right inguinal hernia contains a portion of the cecum. IMPRESSION: 1. Cholelithiasis. 2. Mild groundglass infiltrates in both bases. Correlate for atypical pneumonia. 3. Small umbilical and right inguinal hernias had above. Electronically signed by: Hernandez Camarena MD (03/28/2021 2:39 AM) [facility]
[2021-03-28] MEDS: MORPHINE SULFATE 2 MG/ML INJ. IVP PRN ×2 (02:48→06:51)
[2021-03-28] MEDS ORDERED: PIPERACILLIN/TAZOBACTAM 4.5 GM in IV NORMAL SALINE 100ML 100 ML IV SCH (06:00)
--- NOTE | 2021-03-28 09:55 | PDOC ---
Provider Note Date of Service: DATE: 03/28/21 TIME: 09:55 Provider Note H&P dictated. #[id number] Justifications for Admission Other Justification ELIAN LEON MD Mar 28, 2021 09:55
--- NOTE | 2021-03-28 10:39 | HP ---
DATE OF SERVICE: 03/28/2021 ADMIT DATE: 03/28/2021 HISTORY OF PRESENT ILLNESS: This 65 years old male who has a history of diabetes mellitus, hypertension, and moderate aortic stenosis, started having right upper quadrant and epigastric abdominal pain since Friday morning. Pain continued to get worse and because of the severe pain and vomiting yesterday, the patient came to the emergency room. In the emergency room, WBC count was 13.3, hemoglobin 12.7, sodium 134, potassium 3.9, BUN 10, creatinine 0.9, glucose 278, calcium 10.9, albumin 3.9, lipase 100, AST 20, ALT 42, lactic acid level 1.7. Urinalysis negative other than blood sugar. SARS-CoV-2 antigen and RNA test negative. CT scan of abdomen and pelvis showed cholelithiasis, mild ground glass infiltrates in both bases. Small umbilical and right inguinal hernia. Abdominal ultrasound showed cholelithiasis with gallbladder distention. No pericholecystic fluid or wall thickening. The patient is admitted for acute cholecystitis. SYSTEMS REVIEW: At present time, the patient complains of some right upper quadrant abdominal pain on and off. He denies any fever or chills. He has had nausea and vomiting yesterday. He denies any diarrhea, constipation, bleeding. He denies any cold, cough, congestion, chest pains or leg pain. Other systems reviewed and are negative. PAST MEDICAL HISTORY: The patient has diabetes mellitus type 2, hypertension, moderate aortic stenosis, history of anemia. He also has 1-vessel coronary artery disease. RCA showed ostial subtotal occlusion with left to right collaterals. PAST SURGICAL HISTORY: The patient had a cardiac catheterization on 09/09/2017 that showed moderate aortic stenosis and right coronary artery stenosis as noted above. FAMILY HISTORY: There is family history of breast cancer. Father had stroke. Mother had hypertension and type 2 diabetes. SOCIAL HISTORY: No history of smoking, alcoholism, drug abuse. The patient works at [employer]. PHYSICAL EXAMINATION: VITAL SIGNS: Temperature 98.6, pulse 108 per minute, respirations 20 per minute, blood pressure 157/69 mmHg. GENERAL: The patient is an elderly male who is alert, oriented x 3, and not in acute distress. EYES: Pupils reactive to light. Conjunctivae pink. Sclerae white. HENT: Unremarkable. NECK: Supple. JVP normal. No thyromegaly. Trachea midline. LUNGS: Clear. CARDIOVASCULAR: S1, S2, regular. ABDOMEN: Soft, mild tenderness in the right upper quadrant. No guarding, no rigidity. Bowel sounds present. EXTREMITIES: No edema, no cyanosis, no calf tenderness. CENTRAL NERVOUS SYSTEM: Alert and oriented, mild anxiety. LABORATORY FINDINGS: As noted earlier. IMPRESSION: 1. Acute cholecystitis with cholelithiasis. 2. Diabetes mellitus type 2, not controlled. Glucose 278. 3. Hypertension. 4. Moderate aortic stenosis. 5. Coronary artery disease with RCA involvement. PLAN: 1. Acute cholecystitis and cholelithiasis. Consult Dr. Germain for surgical evaluation and management options such as surgery extensively discussed with the patient. Keep n.p.o., start IV Zosyn, IV fluids, IV morphine p.r.n. for pain. 2. Diabetes mellitus type 2, not controlled. Hold glipizide and metformin, start sliding scale insulin. 3. Hypertension, coronary artery disease and moderate aortic stenosis, stable. For details, please refer to the orders. Recheck labs in a.m. Troponin level was 25. Clinically stable for surgery. EKG showed sinus rhythm and no acute ST-T changes. CHARLY MONIQUE: Hallie TID: [id number]
[2021-03-28] MEDS: INSULIN LISPRO 300 UNITS/3 ML VIAL. SQ SCH ×3 (12:24→21:00)
--- NOTE | 2021-03-28 14:20 | NUR ---
SS following for discharge planning. SS reviewed pt chart and discussed with pt RN. Pt is from home and is currently on room air. COVID19 negative. Pt on IV Zosyn. Surgery consulted. SS will continue to follow for discharge planning.
--- NOTE | 2021-03-28 16:41 | PDOC2 ---
CONSULT Date of Consult Date of Consult DATE: 03/28/21 TIME: 16:36 Reason for Consult Reason for Consult: symptomatic cholelithiasis Referring Physician Referring Physician: Dr. Dan Identification/Chief Complaint Chief Complaint RUQ abd pain Source Source: Chart review, Patient History of Present Illness Reason for Visit: 65 yo M with c/o RUQ abd pain since 03/27. Does feel better since admission. Past Medical History Cardiovascular: CAD, Aortic stenosis GI: Other (hernias) Endocrine: Diabetes Family History Family History: Coronary Artery Disease Social History No Current Problem List Problem List Problems Medical Problems: (1) Acute cholecystitis Status: Acute Current Medications Current Medications Current Medications Ondansetron HCl (Zofran) 4 mg STK-MED ONCE .ROUTE ; Start 03/27/21 at 23:00; Stop 03/27/21 at 23:01; Status DC Sodium Chloride 1,000 ml @ 1,000 mls/hr 1X ONCE IV Last administered on 03/27/21at 23:08; Start 03/27/21 at 23:30; Stop 03/28/21 at 00:29; Status DC Ondansetron HCl (Zofran) 4 mg 1X ONCE IVP Last administered on 03/27/21at 23:04; Start 03/27/21 at 23:30; Stop 03/27/21 at 23:31; Status DC Morphine Sulfate (Morphine Sulfate) 4 mg 1X ONCE IVP Last administered on 03/27/21at 23:08; Start 03/27/21 at 23:30; Stop 03/27/21 at 23:31; Status DC Iohexol (Omnipaque 300 Mg/ml) 75 ml 1X ONCE IV Last administered on 03/28/21at 01:04; Start 03/28/21 at 01:00; Stop 03/28/21 at 01:01; Status DC Info (CONTRAST GIVEN -- Rx MONITORING) 1 each PRN DAILY PRN MC SEE COMMENTS; Start 03/28/21 at 00:45; Stop 03/30/21 at 00:44 Ondansetron HCl (Zofran) 4 mg PRN Q8HRS PRN IVP NAUSEA/VOMITING 1ST CHOICE; Start 03/28/21 at 02:00; Stop 03/28/21 at 09:57; Status DC Morphine Sulfate (Morphine Sulfate) 2 mg PRN Q2HR PRN IVP SEVERE PAIN 7-10 Last administered on 03/28/21at 06:51; Start 03/28/21 at 02:00; Stop 03/28/21 at 09:59; Status DC Piperacillin Sod/ Tazobactam Sod 4.5 gm/Sodium Chloride 100 ml @ 200 mls/hr Q6HRS IV ; Start 03/28/21 at 06:00; Status UNV Dextrose/Lactated Ringer's 1,000 ml @ 125 mls/hr 1X ONCE IV Last administered on 03/28/21at 02:19; Start 03/28/21 at 02:30; Stop 03/28/21 at 10:29; Status DC Piperacillin Sod/ Tazobactam Sod 3.375 gm/Sodium Chloride 50 ml @ 100 mls/hr Q6HRS IV Last administered on 03/28/21at 12:19; Start 03/28/21 at 02:00 Morphine Sulfate (Morphine Sulfate) 2 mg PRN Q2HR PRN IV PAIN; Start 03/28/21 at 09:30 Insulin Human Lispro (HumaLOG) 0-10 UNITS QIDACHS SQ Last administered on 03/28/21at 12:24; Start 03/28/21 at 11:30 Ondansetron HCl (Zofran) 4 mg PRN Q6HRS PRN IVP NAUSEA/VOMITING; Start 03/28/21 at 10:00 Active Scripts Active Zithromax (Azithromycin) 250 Mg Tablet 250 Mg PO DIRECTED Take 2 PO x 1 days Then take 1 PO q 24 hour for the next 4 days Prednisone 50 Mg Tablet 1 Tab PO DAILY Reported Lisinopril 5 Mg Tablet 5 Mg PO DAILY Zyrtec (Cetirizine Hcl) 10 Mg Tablet 1 Tab PO DAILY Metformin Hcl 500 Mg Tablet 1 Tab PO BID Glipizide 5 Mg Tablet 1 Tab PO DAILY Allergies Allergies: Coded Allergies: No Known Allergies (Verified Allergy, Unknown, 05/08/15) ROS Gastrointestinal: Yes Abdominal Pain Physical Exam General: Alert, Oriented X3, Cooperative, No acute distress HEENT: Atraumatic Lungs: Normal air movement Abdomen: Soft, Other (TTP RUQ) Extremities: No clubbing, No cyanosis Skin: No rashes, No breakdown Neuro: Normal speech, Sensation intact Psych/Mental Status: Mental status NL, Mood NL Vitals VITALS Vital Signs Date Time Temp Pulse Resp B/P (MAP) Pulse Ox O2 Delivery O2 Flow Rate FiO2 03/28/21 15:00 98.8 87 20 145/69 (94) 98 Room Air 98.8 Labs Labs Laboratory Tests Test 03/27/21 22:14 03/27/21 22:30 03/28/21 01:44 03/28/21 11:45 Urine Collection Type Unknown Urine Color Yellow Urine Clarity Clear Urine pH 5.0 (<5.0-8.0) Urine Specific [place] >=1.030 (1.000-1.030) Urine Protein 30 mg/dL (NEG-TRACE) Urine Glucose (UA) >=1000 mg/dL (NEG) Urine Ketones (Stick) Trace mg/dL (NEG) Urine Blood Moderate (NEG) Urine Nitrite Negative (NEG) Urine Bilirubin Negative (NEG) Urine Urobilinogen Dipstick 0.2 mg/dL (0.2 mg/dL) Urine Leukocyte Esterase Negative (NEG) Urine RBC 11-20 /HPF (0-2) Urine WBC 1-4 /HPF (0-4) Urine Squamous Epithelial Cells Few /LPF Urine Bacteria 0 /HPF (0-FEW) White Blood Count 13.3 x10^3/uL (4.0-11.0) Red Blood Count 5.51 x10^6/uL (4.30-5.70) Hemoglobin 12.7 g/dL (13.0-17.5) Hematocrit 40.7 % (39.0-53.0) Mean Corpuscular Volume 74 fL (79-100) Mean Corpuscular Hemoglobin 23 pg (25-35) Mean Corpuscular Hemoglobin Concent 31 g/dL (31-37) Red Cell Distribution Width 15.0 % (11.5-14.5) Platelet Count 197 x10^3/uL (140-400) Neutrophils (%) (Auto) 91 % (31-73) Lymphocytes (%) (Auto) 4 % (24-48) Monocytes (%) (Auto) 5 % (0-9) Eosinophils (%) (Auto) 0 % (0-3) Basophils (%) (Auto) 0 % (0-3) Neutrophils # (Auto) 12.1 x10^3/uL (1.8-7.7) Lymphocytes # (Auto) 0.6 x10^3/uL (1.0-4.8) Monocytes # (Auto) 0.6 x10^3/uL (0.0-1.1) Eosinophils # (Auto) 0.0 x10^3/uL (0.0-0.7) Basophils # (Auto) 0.0 x10^3/uL (0.0-0.2) Segmented Neutrophils % 87 % (35-66) Band Neutrophils % 9 % (0-9) Lymphocytes % 3 % (24-48) Monocytes % 1 % (0-10) Platelet Estimate Adequate (ADEQUATE) Polychromasia Slight Microcytosis Slight Sodium Level 134 mmol/L (136-145) Potassium Level 3.9 mmol/L (3.5-5.1) Chloride Level 98 mmol/L (98-107) Carbon Dioxide Level 27 mmol/L (21-32) Anion Gap 9 (6-14) Blood Urea Nitrogen 10 mg/dL (8-26) Creatinine 0.9 mg/dL (0.7-1.3) Estimated GFR (Cockcroft-Gault) 102.5 BUN/Creatinine Ratio 11 (6-20) Glucose Level 278 mg/dL (70-99) Lactic Acid Level 1.7 mmol/L (0.4-2.0) Calcium Level 10.9 mg/dL (8.5-10.1) Total Bilirubin 0.5 mg/dL (0.2-1.0) Aspartate Amino Transf (AST/SGOT) 20 U/L (15-37) Alanine Aminotransferase (ALT/SGPT) 42 U/L (16-63) Alkaline Phosphatase 135 U/L (46-116) Troponin I High Sensitivity 25 ng/L (4-75) Total Protein 8.1 g/dL (6.4-8.2) Albumin 3.9 g/dL (3.4-5.0) Albumin/Globulin Ratio 0.9 (1.0-1.7) Lipase 100 U/L (73-393) SARS-CoV-2 RNA (JOHN) Negative (Negative) SARS-CoV-2 Antigen (Rapid) Negative (NEGATIVE) Glucose (Fingerstick) 232 mg/dL (70-99) Test 03/28/21 16:28 Glucose (Fingerstick) 141 mg/dL (70-99) Laboratory Tests Test 03/27/21 22:14 03/27/21 22:30 03/28/21 01:44 03/28/21 11:45 Urine Collection Type Unknown Urine Color Yellow Urine Clarity Clear Urine pH 5.0 (<5.0-8.0) Urine Specific [place] >=1.030 (1.000-1.030) Urine Protein 30 mg/dL (NEG-TRACE) Urine Glucose (UA) >=1000 mg/dL (NEG) Urine Ketones (Stick) Trace mg/dL (NEG) Urine Blood Moderate (NEG) Urine Nitrite Negative (NEG) Urine Bilirubin Negative (NEG) Urine Urobilinogen Dipstick 0.2 mg/dL (0.2 mg/dL) Urine Leukocyte Esterase Negative (NEG) Urine RBC 11-20 /HPF (0-2) Urine WBC 1-4 /HPF (0-4) Urine Squamous Epithelial Cells Few /LPF Urine Bacteria 0 /HPF (0-FEW) White Blood Count 13.3 x10^3/uL (4.0-11.0) Red Blood Count 5.51 x10^6/uL (4.30-5.70) Hemoglobin 12.7 g/dL (13.0-17.5) Hematocrit 40.7 % (39.0-53.0) Mean Corpuscular Volume 74 fL (79-100) Mean Corpuscular Hemoglobin 23 pg (25-35) Mean Corpuscular Hemoglobin Concent 31 g/dL (31-37) Red Cell Distribution Width 15.0 % (11.5-14.5) Platelet Count 197 x10^3/uL (140-400) Neutrophils (%) (Auto) 91 % (31-73) Lymphocytes (%) (Auto) 4 % (24-48) Monocytes (%) (Auto) 5 % (0-9) Eosinophils (%) (Auto) 0 % (0-3) Basophils (%) (Auto) 0 % (0-3) Neutrophils # (Auto) 12.1 x10^3/uL (1.8-7.7) Lymphocytes # (Auto) 0.6 x10^3/uL (1.0-4.8) Monocytes # (Auto) 0.6 x10^3/uL (0.0-1.1) Eosinophils # (Auto) 0.0 x10^3/uL (0.0-0.7) Basophils # (Auto) 0.0 x10^3/uL (0.0-0.2) Segmented Neutrophils % 87 % (35-66) Band Neutrophils % 9 % (0-9) Lymphocytes % 3 % (24-48) Monocytes % 1 % (0-10) Platelet Estimate Adequate (ADEQUATE) Polychromasia Slight Microcytosis Slight Sodium Level 134 mmol/L (136-145) Potassium Level 3.9 mmol/L (3.5-5.1) Chloride Level 98 mmol/L (98-107) Carbon Dioxide Level 27 mmol/L (21-32) Anion Gap 9 (6-14) Blood Urea Nitrogen 10 mg/dL (8-26) Creatinine 0.9 mg/dL (0.7-1.3) Estimated GFR (Cockcroft-Gault) 102.5 BUN/Creatinine Ratio 11 (6-20) Glucose Level 278 mg/dL (70-99) Lactic Acid Level 1.7 mmol/L (0.4-2.0) Calcium Level 10.9 mg/dL (8.5-10.1) Total Bilirubin 0.5 mg/dL (0.2-1.0) Aspartate Amino Transf (AST/SGOT) 20 U/L (15-37) Alanine Aminotransferase (ALT/SGPT) 42 U/L (16-63) Alkaline Phosphatase 135 U/L (46-116) Troponin I High Sensitivity 25 ng/L (4-75) Total Protein 8.1 g/dL (6.4-8.2) Albumin 3.9 g/dL (3.4-5.0) Albumin/Globulin Ratio 0.9 (1.0-1.7) Lipase 100 U/L (73-393) SARS-CoV-2 RNA (JOHN) Negative (Negative) SARS-CoV-2 Antigen (Rapid) Negative (NEGATIVE) Glucose (Fingerstick) 232 mg/dL (70-99) Test 03/28/21 16:28 Glucose (Fingerstick) 141 mg/dL (70-99) Images Images Imaging c/w cholelithiasis with gallbladder distention Assessment/Plan Assessment/Plan symptomatic cholelithiasis his symptoms are c/w biliary disease. Would also favor cholecystectomy given gallstones in the setting of diabetes appreciate improvement in glucose since admission. Will plan cholecystectomy tomorrow R/R/B/A d/w pt. Risk, including, but not limited to: bleeding, infection, damage to surrounding structures, risk of anesthesia, risk of open. He appears to understand, his questions are answered and he elects to proceed. Thanks for consult! JAMAL CARTER MD Mar 28, 2021 16:41
[2021-03-28] MEDS ORDERED: IV DEXTROSE 5 %-0.45 % NACL 1,000 ML IV ONE (20:15)
[2021-03-28] MEDS: IV DEXTROSE 5 %-0.45 % NACL 1,000 ML IV SCH (20:40)
[2021-03-29] VITALS (12 sets, daily range): BP systolic 115–165; BP diastolic 49–79
[2021-03-29] MEDS: PIPERACILLIN/TAZOBACTAM 3.375 GM in IV NORMAL SALINE 50ML 50 ML IV SCH ×4 (00:01→18:39)
[2021-03-29] MEDS: IV DEXTROSE 5 %-0.45 % NACL 1,000 ML IV SCH (04:32)
[2021-03-29] MEDS: MORPHINE SULFATE 2 MG/ML INJ. IV PRN (05:46)
[2021-03-29 07:43] LABS: BASO % 0 % (0-3); EOS % 0 % (0-3); HEMOGLOBIN 11.1 g/dL (13.0-17.5); LYMPH # 0.9 x10^3/uL (1.0-4.8); LYMPH % 8 % (24-48); MEAN CORPUSCULAR HEMOGLOBIN 23 pg (25-35); MEAN CORPUSCULAR HGB CONC 31 g/dL (31-37); MEAN CORPUSCULAR VOLUME 74 fL (79-100); MONO # 1.5 x10^3/uL (0.0-1.1); MONO % 13 % (0-9); NEUT # 9.2 x10^3/uL (1.8-7.7); NEUT % 78 % (31-73); PLATELET COUNT 162 x10^3/uL (140-400); RED BLOOD COUNT 4.85 x10^6/uL (4.30-5.70); WHITE BLOOD COUNT 11.7 x10^3/uL (4.0-11.0)
[2021-03-29 08:12] LABS: ALBUMIN 2.5 g/dL (3.4-5.0); ALBUMIN/GLOBULIN RATIO 0.7 (1.0-1.7); CALCIUM 9.4 mg/dL (8.5-10.1); CREATININE 0.8 mg/dL (0.7-1.3); GFR 117.4; POTASSIUM 3.6 mmol/L (3.5-5.1); TOTAL BILIRUBIN 0.6 mg/dL (0.2-1.0)
--- NOTE | 2021-03-29 08:40 | PDOC ---
IM PROGRESS NOTES- Subjective Subjective Complaints of right upper quadrant pain. Objective Vitals/I&O Vital Signs Date Time Temp Pulse Resp B/P (MAP) Pulse Ox O2 Delivery O2 Flow Rate FiO2 03/29/21 07:00 98.4 86 20 119/55 (76) 91 Room Air 98.4 I & O 03/28/21 03/28/21 03/29/21 15:00 23:00 07:00 Intake Total 100 ml 1011.05 ml Balance 100 ml 1011.05 ml Physical Exam Physical Exam General Appearance - alert and in no distress Chest - decreased breath sounds at bases Heart - S1 and S2 normal Abdomen - soft, mild tenderness right upper quadrant. Neurological - alert and oriented Musculoskeletal - generalized weakness Extremities - no edema Labs Laboratory Tests Test 03/28/21 11:45 03/28/21 16:28 03/28/21 20:39 03/29/21 06:40 Glucose (Fingerstick) 232 mg/dL (70-99) H 141 mg/dL (70-99) H 157 mg/dL (70-99) H White Blood Count 11.7 x10^3/uL (4.0-11.0) H Red Blood Count 4.85 x10^6/uL (4.30-5.70) Hemoglobin 11.1 g/dL (13.0-17.5) L Hematocrit 36.0 % (39.0-53.0) L Mean Corpuscular Volume 74 fL (79-100) L Mean Corpuscular Hemoglobin 23 pg (25-35) L Mean Corpuscular Hemoglobin Concent 31 g/dL (31-37) Red Cell Distribution Width 15.0 % (11.5-14.5) H Platelet Count 162 x10^3/uL (140-400) Neutrophils (%) (Auto) 78 % (31-73) H Lymphocytes (%) (Auto) 8 % (24-48) L Monocytes (%) (Auto) 13 % (0-9) H Eosinophils (%) (Auto) 0 % (0-3) Basophils (%) (Auto) 0 % (0-3) Neutrophils # (Auto) 9.2 x10^3/uL (1.8-7.7) H Lymphocytes # (Auto) 0.9 x10^3/uL (1.0-4.8) L Monocytes # (Auto) 1.5 x10^3/uL (0.0-1.1) H Eosinophils # (Auto) 0.0 x10^3/uL (0.0-0.7) Basophils # (Auto) 0.0 x10^3/uL (0.0-0.2) Sodium Level 135 mmol/L (136-145) L Potassium Level 3.6 mmol/L (3.5-5.1) Chloride Level 101 mmol/L (98-107) Carbon Dioxide Level 26 mmol/L (21-32) Anion Gap 8 (6-14) Blood Urea Nitrogen 9 mg/dL (8-26) Creatinine 0.8 mg/dL (0.7-1.3) Estimated GFR (Cockcroft-Gault) 117.4 BUN/Creatinine Ratio 11 (6-20) Glucose Level 222 mg/dL (70-99) H Calcium Level 9.4 mg/dL (8.5-10.1) Total Bilirubin 0.6 mg/dL (0.2-1.0) Aspartate Amino Transferase (AST) 17 U/L (15-37) Alanine Aminotransferase (ALT) 26 U/L (16-63) Alkaline Phosphatase 75 U/L (46-116) Total Protein 6.0 g/dL (6.4-8.2) L Albumin 2.5 g/dL (3.4-5.0) L Albumin/Globulin Ratio 0.7 (1.0-1.7) L Test 03/29/21 07:10 Glucose (Fingerstick) 238 mg/dL (70-99) H Laboratory Tests 03/29/21 06:40 Laboratory Tests 03/29/21 06:40 Meds Current Medications Medications (Trade) Dose Ordered Sig/Pancho Route PRN Reason Start Time Stop Time Status Last Admin Dose Admin Morphine Sulfate (Morphine Sulfate) 2 mg PRN Q2HR PRN IV PAIN 03/28/21 09:30 03/29/21 05:46 Insulin Human Lispro (HumaLOG) 0-10 UNITS QIDACHS SQ 03/28/21 11:30 03/28/21 12:24 Dextrose/Sodium Chloride 1,000 ml @ 125 mls/hr Q8H IV 03/28/21 20:45 03/29/21 04:32 Assessment Assessment 1. Acute cholecystitis with cholelithiasis. 2. Diabetes mellitus type 2, not controlled. Glucose 278. 3. Hypertension. 4. Moderate aortic stenosis. 5. Coronary artery disease with RCA involvement. PLAN: 1. Acute cholecystitis and cholelithiasis. Consult Dr. Germain for surgical evaluation and management options such as surgery extensively discussed with the patient. Keep n.p.o., start IV Zosyn, IV fluids, IV morphine p.r.n. for pain. WBC count is decreased to 11.7. Patient has been seen by Dr. Bates who is planning to do surgery today. 2. Diabetes mellitus type 2, not controlled. Hold glipizide and metformin, start sliding scale insulin. 3. Hypertension, coronary artery disease and moderate aortic stenosis, stable. For details, please refer to the orders. Recheck labs in a.m. Troponin level was 25. Clinically stable for surgery. EKG showed sinus rhythm and no acute ST-T changes. Hypokalemia. Replace potassium. Plan Plan For more details regarding further plans, please refer to the orders. Justifications for Admission Other Justification ELIAN LEON MD Mar 29, 2021 08:40
[2021-03-29] MEDS ORDERED: POTASSIUM CHLORIDE 20 MEQ in IV DEXTROSE 5 %-0.45 % NACL 1,000 ML IV SCH (08:45)
[2021-03-29] MEDS: INSULIN LISPRO 300 UNITS/3 ML VIAL. SQ SCH ×4 (10:07→20:40)
--- NOTE | 2021-03-29 10:50 | NUR ---
SW following. Discussed with RN, pt from home alone, room air, NPO, COVID-19 negative. Pt having a lap serena today. RN advised no SW needs at this time. SW will continue to follow.
[2021-03-29] MEDS ORDERED: HEPARIN 1,000 UNIT in IV NORMAL SALINE 1,000 ML for SURG PERIOP IRR ONE (12:00)
[2021-03-29] MEDS ORDERED: IOHEXOL 300 MG/ML 50 ML VIAL. ONE (12:32)
[2021-03-29] MEDS ORDERED: BUPIVACAINE-EPI 0.5% 30 ML VIAL KIT. ONE (12:32)
[2021-03-29] MEDS ORDERED: BISACODYL 10 MG SUPP.RECT. ONE (12:33)
[2021-03-29] MEDS ORDERED: SURGICEL HEMOSTAT 4X8 EACH. ONE (12:33)
[2021-03-29] MEDS ORDERED: fentaNYL PF VIAL 100 MCG/2 ML VIAL ONE ×2 (13:07→16:38)
[2021-03-29] MEDS ORDERED: DEXAMETHASONE SOD PHOS 4 MG/ML VIAL ONE (13:07)
[2021-03-29] MEDS ORDERED: ONDANSETRON PF 4 MG/2 ML VIAL. ONE (13:07)
[2021-03-29] MEDS ORDERED: PROPOFOL 10 MG/ML (20ML) VIAL. IV ONE (13:07)
[2021-03-29] MEDS ORDERED: LIDOCAINE 1% PF 5 ML VIAL. ONE (13:08)
[2021-03-29] MEDS ORDERED: SUCCINYLCHOLINE 200 MG/10 ML VIAL. ONE (13:49)
[2021-03-29] MEDS ORDERED: PHENYLEPHRINE 10 MG/ML VIAL. ONE (13:51)
[2021-03-29] MEDS ORDERED: PROCHLORPERAZINE 10 MG/2 ML VIAL. IVP PRN (14:00)
[2021-03-29] MEDS ORDERED: HYDROmorphone 2 MG/ML VIAL IVP PRN (14:00)
[2021-03-29] MEDS ORDERED: INSULIN LISPRO 100 UNIT/ML 3ML VIAL for OP,RR ONLY. SQ PRN (14:00)
[2021-03-29] MEDS ORDERED: IV RINGERS,LACTATED 1000ML 1,000 ML IV SCH (14:00)
[2021-03-29] MEDS ORDERED: fentaNYL PF VIAL 100 MCG/2 ML VIAL IVP PRN (14:00)
[2021-03-29] MEDS ORDERED: LIDOCAINE 2% PF 5 ML VIAL. ONE (14:09)
--- NOTE | 2021-03-29 15:04 | PDOC ---
SURGICAL PROGRESS NOTE DATE: 03/29/21 TIME: 15:03 Subjective 65 yo M with symptomatic cholelithiasis and DM TO OR for laparoscopic versus open cholecystectomy with cholangiogram. R/R/B/A d/w pt. Risks, including, but not limited to: bleeding, infection, damage to surrounding structures, risk of anesthesia, risk of open. He appears to understand, his questions are answered and he elects to proceed. Vital Signs Vital Signs Date Time Temp Pulse Resp B/P (MAP) Pulse Ox O2 Delivery O2 Flow Rate FiO2 03/29/21 13:44 100.8 90 16 168/73 97 Room Air 100.8 I&O Intake and Output 03/29/21 07:00 Intake Total 1111.05 ml Balance 1111.05 ml IV Total 1111.05 ml # Voids 4 Labs Laboratory Tests Test 03/27/21 22:14 03/27/21 22:30 03/28/21 01:44 03/28/21 11:45 Urine Collection Type Unknown Urine Color Yellow Urine Clarity Clear Urine pH 5.0 (<5.0-8.0) Urine Specific Dennison >=1.030 (1.000-1.030) Urine Protein 30 mg/dL (NEG-TRACE) Urine Glucose (UA) >=1000 mg/dL (NEG) Urine Ketones (Stick) Trace mg/dL (NEG) Urine Blood Moderate (NEG) Urine Nitrite Negative (NEG) Urine Bilirubin Negative (NEG) Urine Urobilinogen Dipstick 0.2 mg/dL (0.2 mg/dL) Urine Leukocyte Esterase Negative (NEG) Urine RBC 11-20 /HPF (0-2) Urine WBC 1-4 /HPF (0-4) Urine Squamous Epithelial Cells Few /LPF Urine Bacteria 0 /HPF (0-FEW) White Blood Count 13.3 x10^3/uL (4.0-11.0) Red Blood Count 5.51 x10^6/uL (4.30-5.70) Hemoglobin 12.7 g/dL (13.0-17.5) Hematocrit 40.7 % (39.0-53.0) Mean Corpuscular Volume 74 fL (79-100) Mean Corpuscular Hemoglobin 23 pg (25-35) Mean Corpuscular Hemoglobin Concent 31 g/dL (31-37) Red Cell Distribution Width 15.0 % (11.5-14.5) Platelet Count 197 x10^3/uL (140-400) Neutrophils (%) (Auto) 91 % (31-73) Lymphocytes (%) (Auto) 4 % (24-48) Monocytes (%) (Auto) 5 % (0-9) Eosinophils (%) (Auto) 0 % (0-3) Basophils (%) (Auto) 0 % (0-3) Neutrophils # (Auto) 12.1 x10^3/uL (1.8-7.7) Lymphocytes # (Auto) 0.6 x10^3/uL (1.0-4.8) Monocytes # (Auto) 0.6 x10^3/uL (0.0-1.1) Eosinophils # (Auto) 0.0 x10^3/uL (0.0-0.7) Basophils # (Auto) 0.0 x10^3/uL (0.0-0.2) Segmented Neutrophils % 87 % (35-66) Band Neutrophils % 9 % (0-9) Lymphocytes % 3 % (24-48) Monocytes % 1 % (0-10) Platelet Estimate Adequate (ADEQUATE) Polychromasia Slight Microcytosis Slight Sodium Level 134 mmol/L (136-145) Potassium Level 3.9 mmol/L (3.5-5.1) Chloride Level 98 mmol/L (98-107) Carbon Dioxide Level 27 mmol/L (21-32) Anion Gap 9 (6-14) Blood Urea Nitrogen 10 mg/dL (8-26) Creatinine 0.9 mg/dL (0.7-1.3) Estimated GFR (Cockcroft-Gault) 102.5 BUN/Creatinine Ratio 11 (6-20) Glucose Level 278 mg/dL (70-99) Lactic Acid Level 1.7 mmol/L (0.4-2.0) Calcium Level 10.9 mg/dL (8.5-10.1) Total Bilirubin 0.5 mg/dL (0.2-1.0) Aspartate Amino Transf (AST/SGOT) 20 U/L (15-37) Alanine Aminotransferase (ALT/SGPT) 42 U/L (16-63) Alkaline Phosphatase 135 U/L (46-116) Troponin I High Sensitivity 25 ng/L (4-75) Total Protein 8.1 g/dL (6.4-8.2) Albumin 3.9 g/dL (3.4-5.0) Albumin/Globulin Ratio 0.9 (1.0-1.7) Lipase 100 U/L (73-393) SARS-CoV-2 RNA (JOHN) Negative (Negative) SARS-CoV-2 Antigen (Rapid) Negative (NEGATIVE) Glucose (Fingerstick) 232 mg/dL (70-99) Test 03/28/21 16:28 03/28/21 20:39 03/29/21 06:40 03/29/21 07:10 Glucose (Fingerstick) 141 mg/dL (70-99) 157 mg/dL (70-99) 238 mg/dL (70-99) White Blood Count 11.7 x10^3/uL (4.0-11.0) Red Blood Count 4.85 x10^6/uL (4.30-5.70) Hemoglobin 11.1 g/dL (13.0-17.5) Hematocrit 36.0 % (39.0-53.0) Mean Corpuscular Volume 74 fL (79-100) Mean Corpuscular Hemoglobin 23 pg (25-35) Mean Corpuscular Hemoglobin Concent 31 g/dL (31-37) Red Cell Distribution Width 15.0 % (11.5-14.5) Platelet Count 162 x10^3/uL (140-400) Neutrophils (%) (Auto) 78 % (31-73) Lymphocytes (%) (Auto) 8 % (24-48) Monocytes (%) (Auto) 13 % (0-9) Eosinophils (%) (Auto) 0 % (0-3) Basophils (%) (Auto) 0 % (0-3) Neutrophils # (Auto) 9.2 x10^3/uL (1.8-7.7) Lymphocytes # (Auto) 0.9 x10^3/uL (1.0-4.8) Monocytes # (Auto) 1.5 x10^3/uL (0.0-1.1) Eosinophils # (Auto) 0.0 x10^3/uL (0.0-0.7) Basophils # (Auto) 0.0 x10^3/uL (0.0-0.2) Sodium Level 135 mmol/L (136-145) Potassium Level 3.6 mmol/L (3.5-5.1) Chloride Level 101 mmol/L (98-107) Carbon Dioxide Level 26 mmol/L (21-32) Anion Gap 8 (6-14) Blood Urea Nitrogen 9 mg/dL (8-26) Creatinine 0.8 mg/dL (0.7-1.3) Estimated GFR (Cockcroft-Gault) 117.4 BUN/Creatinine Ratio 11 (6-20) Glucose Level 222 mg/dL (70-99) Calcium Level 9.4 mg/dL (8.5-10.1) Total Bilirubin 0.6 mg/dL (0.2-1.0) Aspartate Amino Transf (AST/SGOT) 17 U/L (15-37) Alanine Aminotransferase (ALT/SGPT) 26 U/L (16-63) Alkaline Phosphatase 75 U/L (46-116) Total Protein 6.0 g/dL (6.4-8.2) Albumin 2.5 g/dL (3.4-5.0) Albumin/Globulin Ratio 0.7 (1.0-1.7) Test 03/29/21 11:29 03/29/21 13:43 Glucose (Fingerstick) 163 mg/dL (70-99) 111 mg/dL (70-99) Laboratory Tests Test 03/28/21 16:28 03/28/21 20:39 03/29/21 06:40 03/29/21 07:10 Glucose (Fingerstick) 141 mg/dL (70-99) 157 mg/dL (70-99) 238 mg/dL (70-99) White Blood Count 11.7 x10^3/uL (4.0-11.0) Red Blood Count 4.85 x10^6/uL (4.30-5.70) Hemoglobin 11.1 g/dL (13.0-17.5) Hematocrit 36.0 % (39.0-53.0) Mean Corpuscular Volume 74 fL (79-100) Mean Corpuscular Hemoglobin 23 pg (25-35) Mean Corpuscular Hemoglobin Concent 31 g/dL (31-37) Red Cell Distribution Width 15.0 % (11.5-14.5) Platelet Count 162 x10^3/uL (140-400) Neutrophils (%) (Auto) 78 % (31-73) Lymphocytes (%) (Auto) 8 % (24-48) Monocytes (%) (Auto) 13 % (0-9) Eosinophils (%) (Auto) 0 % (0-3) Basophils (%) (Auto) 0 % (0-3) Neutrophils # (Auto) 9.2 x10^3/uL (1.8-7.7) Lymphocytes # (Auto) 0.9 x10^3/uL (1.0-4.8) Monocytes # (Auto) 1.5 x10^3/uL (0.0-1.1) Eosinophils # (Auto) 0.0 x10^3/uL (0.0-0.7) Basophils # (Auto) 0.0 x10^3/uL (0.0-0.2) Sodium Level 135 mmol/L (136-145) Potassium Level 3.6 mmol/L (3.5-5.1) Chloride Level 101 mmol/L (98-107) Carbon Dioxide Level 26 mmol/L (21-32) Anion Gap 8 (6-14) Blood Urea Nitrogen 9 mg/dL (8-26) Creatinine 0.8 mg/dL (0.7-1.3) Estimated GFR (Cockcroft-Gault) 117.4 BUN/Creatinine Ratio 11 (6-20) Glucose Level 222 mg/dL (70-99) Calcium Level 9.4 mg/dL (8.5-10.1) Total Bilirubin 0.6 mg/dL (0.2-1.0) Aspartate Amino Transf (AST/SGOT) 17 U/L (15-37) Alanine Aminotransferase (ALT/SGPT) 26 U/L (16-63) Alkaline Phosphatase 75 U/L (46-116) Total Protein 6.0 g/dL (6.4-8.2) Albumin 2.5 g/dL (3.4-5.0) Albumin/Globulin Ratio 0.7 (1.0-1.7) Test 03/29/21 11:29 03/29/21 13:43 Glucose (Fingerstick) 163 mg/dL (70-99) 111 mg/dL (70-99) Problem List Problems Medical Problems: (1) Acute cholecystitis Status: Acute Justicifation of Admission Dx: Justifications for Admission: Justification of Admission Dx: N/A JAMAL CARTER MD Mar 29, 2021 15:04
--- NOTE | 2021-03-29 15:58 | RAD ---
INDICATION: Reason: CHOLANGIOGRAMS IN OR WITH C-ARM, FL TIME =.7 MIN 2 IMAGES / Spl. Instructions: / History: . Fluoro for cholecystectomy. IMPRESSION: Fluoroscopy was utilized by the clinical service to assist with their procedure. There are 2 saved images/series. The limited saved images show spot images of the upper abdomen with contrast injection of common bile duct with contrast seen in the common bile duct as well as the duodenum without evidence of common b ile duct obstruction. There are couple of small filling defects within the common bile duct which cou ld be secondary to air bubbles but cannot exclude tiny nonobstructive stone or debris. 0.7 minutes of fluoroscopy time was used. This dictation is for the usage of fluoroscopy only. Please see the clinical service's procedure note for detail on the procedure. Electronically signed by: Kelechi Montenegro MD (03/29/2021 3:56 PM) [id number]
[2021-03-29] MEDS ORDERED: NEOSTIGMINE METHYLSULFATE 5 MG/5 ML SYRINGE. ONE (16:06)
--- NOTE | 2021-03-29 16:09 | PDOC4 ---
OPERATIVE NOTE Date: Date: Mar 29, 2021 Pre-Op Diagnosis: Symptomatic cholelithiasis Post-Op Diagnosis: same, gangrenous cholecystitis Procedure Performed: laparoscopic cholecystectomy with cholangiogram Surgeon: Yang Carter Anesthesia Type: GETA plus local Blood Loss: 50 Specimans Obtained: gallbladder Findings: gangrenous appearing gallbladder, normal cholangiogram Complications: none Operative Note: After obtaining informed consent, patient was taken to OR, induced under GETA and prepped in the usual fashion. 5 mm ports placed umbilical and RUQ, 12 port placed epigastric, all under laparoscopic guidance. Abdominal cavity was explored and normal except as noted above. Adhesions to gallbladder taken down bluntly. Gallbladder grasped and triangle of calot exposed. Critical view was obtained which demonstrated cystic duct and artery as only structures into gallbladder. Cystic artery ligated with clips. Cholangiogram obtained via cystic duct and was normal. Cystic duct was ligated with clips and hemolok. Gallbladder was taken off fossa using cautery, placed in bag, delivered and sent to pathology. Copious irrigation. No evidence of bleeding or other pathology. 19 ENA placed in fossa and secured via RUQ port site with 3 0 nylon. Ports removed without bleeding. Fascia repaired with 0 vicryl. Skin repaired with 4 0 monocryl. Dressing placed. Patient tolerated procedure well and sent to PACU in stable condition. All counts correct. Wound class is 4. JAMAL CARTER MD Mar 29, 2021 16:09
[2021-03-29] MEDS ORDERED: SEVOFLURANE 61 TO 120 MINUTES. IH ONE (16:10)
[2021-03-29] MEDS ORDERED: 0.9 % SODIUM CHLORIDE 10 ML DISP.SYRIN. IV PRN (16:15)
[2021-03-29] MEDS ORDERED: ONDANSETRON PF 4 MG/2 ML VIAL. IVP PRN (16:15)
[2021-03-29] MEDS ORDERED: NALOXONE 0.4 MG/ML VIAL. IV PRN (16:15)
[2021-03-29] MEDS ORDERED: IV NORMAL SALINE 1000ML BAG 1,000 ML IV SCH (16:15)
[2021-03-29] MEDS: IV RINGERS,LACTATED 1000ML 1,000 ML IV SCH (16:15)
[2021-03-29] MEDS ORDERED: DEXTROSE 50% 25 GM / 50ML DISP.SYRIN. IV PRN (16:15)
[2021-03-29] MEDS ORDERED: MORPHINE SULFATE 2 MG/ML INJ. ONE (16:38)
[2021-03-29] MEDS: MORPHINE SULFATE 2 MG/ML INJ. IVP PRN ×2 (16:41→16:58)
[2021-03-29] MEDS: fentaNYL PF VIAL 100 MCG/2 ML VIAL IVP PRN ×2 (16:42→16:49)
--- NOTE | 2021-03-29 17:15 | NUR ---
PATIENT RETURNS TO HIS ROOM FROM SURGERY, PATIENT ALERT AND RESPONSIVE, 3 ISLAND DRESSING ON ABDOMINAL AREA, C/D/I, ENA DRAIN TO RIGHT SIDE, SECRETIONS ARE ELLISON RED IN COLOR, POST OP VITALS STARTED WILL MONITOR.
[2021-03-29] MEDS: DOCUSATE SODIUM 100 MG CAPSULE. PO SCH (21:14)
[2021-03-29] MEDS: POTASSIUM CL 20MEQ D5-0.45NACL 1,000 ML IV SCH (21:14)
[2021-03-30] MEDS: IV RINGERS,LACTATED 1000ML 1,000 ML IV SCH ×2 (00:01→12:15)
[2021-03-30] MEDS: PIPERACILLIN/TAZOBACTAM 3.375 GM in IV NORMAL SALINE 50ML 50 ML IV SCH ×4 (00:06→17:33)
[2021-03-30] MEDS: MORPHINE SULFATE 2 MG/ML INJ. IV PRN (01:54)
[2021-03-30 03:28] VITALS: BP 160/77
[2021-03-30] MEDS: POTASSIUM CL 20MEQ D5-0.45NACL 1,000 ML IV SCH ×3 (05:04→20:30)
[2021-03-30 06:27] LABS: BASO % 0 % (0-3); EOS % 0 % (0-3); HEMATOCRIT 39.1 % (39.0-53.0); HEMOGLOBIN 12.2 g/dL (13.0-17.5); LYMPH # 1.1 x10^3/uL (1.0-4.8); LYMPH % 9 % (24-48); MEAN CORPUSCULAR HEMOGLOBIN 23 pg (25-35); MEAN CORPUSCULAR HGB CONC 31 g/dL (31-37); MEAN CORPUSCULAR VOLUME 74 fL (79-100); MONO # 1.3 x10^3/uL (0.0-1.1); MONO % 11 % (0-9); NEUT # 9.8 x10^3/uL (1.8-7.7); NEUT % 80 % (31-73); PLATELET COUNT 167 x10^3/uL (140-400); RED BLOOD COUNT 5.29 x10^6/uL (4.30-5.70); WHITE BLOOD COUNT 12.2 x10^3/uL (4.0-11.0)
[2021-03-30 06:55] LABS: ALBUMIN 2.5 g/dL (3.4-5.0); ALBUMIN/GLOBULIN RATIO 0.6 (1.0-1.7); CALCIUM 9.8 mg/dL (8.5-10.1); CREATININE 0.8 mg/dL (0.7-1.3); GFR 117.4; POTASSIUM 4.2 mmol/L (3.5-5.1); TOTAL BILIRUBIN 0.6 mg/dL (0.2-1.0); TOTAL PROTEIN 6.9 g/dL (6.4-8.2)
[2021-03-30 07:00] VITALS: BP 126/63
[2021-03-30] MEDS: HYDROcodone/APAP 5/325MG 1 TAB TABLET PO PRN ×3 (08:25→17:50)
[2021-03-30] MEDS: INSULIN LISPRO 300 UNITS/3 ML VIAL. SQ SCH ×4 (08:54→20:42)
[2021-03-30] MEDS: DOCUSATE SODIUM 100 MG CAPSULE. PO SCH ×2 (09:00→20:34)
--- NOTE | 2021-03-30 10:06 | PDOC ---
SURGICAL PROGRESS NOTE DATE: 03/30/21 TIME: 10:05 Subjective low appetite pain improved Vital Signs Vital Signs Date Time Temp Pulse Resp B/P (MAP) Pulse Ox O2 Delivery O2 Flow Rate FiO2 03/30/21 08:25 19 97 Nasal Cannula 2.0 03/30/21 07:00 97.6 85 126/63 (84) 97.6 I&O Intake and Output 03/30/21 07:00 Intake Total 1500 ml Output Total 470 ml Balance 1030 ml IV Total 1500 ml Output Urine Total 400 ml Drainage Total 20 ml Estimated Blood Loss 50 ml # Voids 1 General: Alert, Cooperative Abdomen: Soft, Other (drain serosang) Labs Laboratory Tests Test 03/28/21 11:45 03/28/21 16:28 03/28/21 20:39 03/29/21 06:40 Glucose (Fingerstick) 232 mg/dL (70-99) 141 mg/dL (70-99) 157 mg/dL (70-99) White Blood Count 11.7 x10^3/uL (4.0-11.0) Red Blood Count 4.85 x10^6/uL (4.30-5.70) Hemoglobin 11.1 g/dL (13.0-17.5) Hematocrit 36.0 % (39.0-53.0) Mean Corpuscular Volume 74 fL (79-100) Mean Corpuscular Hemoglobin 23 pg (25-35) Mean Corpuscular Hemoglobin Concent 31 g/dL (31-37) Red Cell Distribution Width 15.0 % (11.5-14.5) Platelet Count 162 x10^3/uL (140-400) Neutrophils (%) (Auto) 78 % (31-73) Lymphocytes (%) (Auto) 8 % (24-48) Monocytes (%) (Auto) 13 % (0-9) Eosinophils (%) (Auto) 0 % (0-3) Basophils (%) (Auto) 0 % (0-3) Neutrophils # (Auto) 9.2 x10^3/uL (1.8-7.7) Lymphocytes # (Auto) 0.9 x10^3/uL (1.0-4.8) Monocytes # (Auto) 1.5 x10^3/uL (0.0-1.1) Eosinophils # (Auto) 0.0 x10^3/uL (0.0-0.7) Basophils # (Auto) 0.0 x10^3/uL (0.0-0.2) Sodium Level 135 mmol/L (136-145) Potassium Level 3.6 mmol/L (3.5-5.1) Chloride Level 101 mmol/L (98-107) Carbon Dioxide Level 26 mmol/L (21-32) Anion Gap 8 (6-14) Blood Urea Nitrogen 9 mg/dL (8-26) Creatinine 0.8 mg/dL (0.7-1.3) Estimated GFR (Cockcroft-Gault) 117.4 BUN/Creatinine Ratio 11 (6-20) Glucose Level 222 mg/dL (70-99) Calcium Level 9.4 mg/dL (8.5-10.1) Total Bilirubin 0.6 mg/dL (0.2-1.0) Aspartate Amino Transf (AST/SGOT) 17 U/L (15-37) Alanine Aminotransferase (ALT/SGPT) 26 U/L (16-63) Alkaline Phosphatase 75 U/L (46-116) Total Protein 6.0 g/dL (6.4-8.2) Albumin 2.5 g/dL (3.4-5.0) Albumin/Globulin Ratio 0.7 (1.0-1.7) Test 03/29/21 07:10 03/29/21 11:29 03/29/21 13:43 03/29/21 16:26 Glucose (Fingerstick) 238 mg/dL (70-99) 163 mg/dL (70-99) 111 mg/dL (70-99) 126 mg/dL (70-99) Test 03/29/21 20:16 03/30/21 05:25 03/30/21 07:37 Glucose (Fingerstick) 180 mg/dL (70-99) 230 mg/dL (70-99) White Blood Count 12.2 x10^3/uL (4.0-11.0) Red Blood Count 5.29 x10^6/uL (4.30-5.70) Hemoglobin 12.2 g/dL (13.0-17.5) Hematocrit 39.1 % (39.0-53.0) Mean Corpuscular Volume 74 fL (79-100) Mean Corpuscular Hemoglobin 23 pg (25-35) Mean Corpuscular Hemoglobin Concent 31 g/dL (31-37) Red Cell Distribution Width 15.0 % (11.5-14.5) Platelet Count 167 x10^3/uL (140-400) Neutrophils (%) (Auto) 80 % (31-73) Lymphocytes (%) (Auto) 9 % (24-48) Monocytes (%) (Auto) 11 % (0-9) Eosinophils (%) (Auto) 0 % (0-3) Basophils (%) (Auto) 0 % (0-3) Neutrophils # (Auto) 9.8 x10^3/uL (1.8-7.7) Lymphocytes # (Auto) 1.1 x10^3/uL (1.0-4.8) Monocytes # (Auto) 1.3 x10^3/uL (0.0-1.1) Eosinophils # (Auto) 0.0 x10^3/uL (0.0-0.7) Basophils # (Auto) 0.0 x10^3/uL (0.0-0.2) Sodium Level 137 mmol/L (136-145) Potassium Level 4.2 mmol/L (3.5-5.1) Chloride Level 103 mmol/L (98-107) Carbon Dioxide Level 26 mmol/L (21-32) Anion Gap 8 (6-14) Blood Urea Nitrogen 9 mg/dL (8-26) Creatinine 0.8 mg/dL (0.7-1.3) Estimated GFR (Cockcroft-Gault) 117.4 BUN/Creatinine Ratio 11 (6-20) Glucose Level 217 mg/dL (70-99) Calcium Level 9.8 mg/dL (8.5-10.1) Total Bilirubin 0.6 mg/dL (0.2-1.0) Aspartate Amino Transf (AST/SGOT) 30 U/L (15-37) Alanine Aminotransferase (ALT/SGPT) 37 U/L (16-63) Alkaline Phosphatase 80 U/L (46-116) Total Protein 6.9 g/dL (6.4-8.2) Albumin 2.5 g/dL (3.4-5.0) Albumin/Globulin Ratio 0.6 (1.0-1.7) Laboratory Tests Test 03/29/21 11:29 03/29/21 13:43 03/29/21 16:26 03/29/21 20:16 Glucose (Fingerstick) 163 mg/dL (70-99) 111 mg/dL (70-99) 126 mg/dL (70-99) 180 mg/dL (70-99) Test 03/30/21 05:25 03/30/21 07:37 White Blood Count 12.2 x10^3/uL (4.0-11.0) Red Blood Count 5.29 x10^6/uL (4.30-5.70) Hemoglobin 12.2 g/dL (13.0-17.5) Hematocrit 39.1 % (39.0-53.0) Mean Corpuscular Volume 74 fL (79-100) Mean Corpuscular Hemoglobin 23 pg (25-35) Mean Corpuscular Hemoglobin Concent 31 g/dL (31-37) Red Cell Distribution Width 15.0 % (11.5-14.5) Platelet Count 167 x10^3/uL (140-400) Neutrophils (%) (Auto) 80 % (31-73) Lymphocytes (%) (Auto) 9 % (24-48) Monocytes (%) (Auto) 11 % (0-9) Eosinophils (%) (Auto) 0 % (0-3) Basophils (%) (Auto) 0 % (0-3) Neutrophils # (Auto) 9.8 x10^3/uL (1.8-7.7) Lymphocytes # (Auto) 1.1 x10^3/uL (1.0-4.8) Monocytes # (Auto) 1.3 x10^3/uL (0.0-1.1) Eosinophils # (Auto) 0.0 x10^3/uL (0.0-0.7) Basophils # (Auto) 0.0 x10^3/uL (0.0-0.2) Sodium Level 137 mmol/L (136-145) Potassium Level 4.2 mmol/L (3.5-5.1) Chloride Level 103 mmol/L (98-107) Carbon Dioxide Level 26 mmol/L (21-32) Anion Gap 8 (6-14) Blood Urea Nitrogen 9 mg/dL (8-26) Creatinine 0.8 mg/dL (0.7-1.3) Estimated GFR (Cockcroft-Gault) 117.4 BUN/Creatinine Ratio 11 (6-20) Glucose Level 217 mg/dL (70-99) Calcium Level 9.8 mg/dL (8.5-10.1) Total Bilirubin 0.6 mg/dL (0.2-1.0) Aspartate Amino Transf (AST/SGOT) 30 U/L (15-37) Alanine Aminotransferase (ALT/SGPT) 37 U/L (16-63) Alkaline Phosphatase 80 U/L (46-116) Total Protein 6.9 g/dL (6.4-8.2) Albumin 2.5 g/dL (3.4-5.0) Albumin/Globulin Ratio 0.6 (1.0-1.7) Glucose (Fingerstick) 230 mg/dL (70-99) Problem List Problems Medical Problems: (1) Acute cholecystitis Status: Acute Assessment/Plan s/p serena can advance diet dc planning, would leave drain in place and FU 1 week Justicifation of Admission Dx: Justifications for Admission: Justification of Admission Dx: N/A NELDA WILLETT DIRECTOR OF STRATEGY & [employer]BILE Mar 30, 2021 10:06
[2021-03-30 11:00] VITALS: BP 96/52
--- NOTE | 2021-03-30 11:04 | PDOC ---
PROGRESS NOTES Date of Service: DATE: 03/30/21 TIME: 11:02 Subjective Subjective feeling better today ,post op day #1 Objective Objective Vital Signs Date Time Temp Pulse Resp B/P (MAP) Pulse Ox O2 Delivery O2 Flow Rate FiO2 03/30/21 08:25 19 97 Nasal Cannula 2.0 03/30/21 07:00 97.6 85 126/63 (84) 97.6 Intake and Output 03/30/21 07:00 Intake Total 1500 ml Output Total 470 ml Balance 1030 ml IV Total 1500 ml Output Urine Total 400 ml Drainage Total 20 ml Estimated Blood Loss 50 ml # Voids 1 Physical Exam Abdomen: Soft, Other (drain serosang) Extremities: No clubbing, No cyanosis General: Alert, Cooperative HEENT: Atraumatic Lungs: Normal air movement Neuro: Normal speech, Sensation intact Psych/Mental Status: Mental status NL, Mood NL Skin: No rashes, No breakdown Diagnosis Problem List Problems Medical Problems: (1) Acute cholecystitis Status: Acute Assessment Assessment 1. Acute cholecystitis with cholelithiasis. 2. Diabetes mellitus type 2, not controlled. Glucose 278. 3. Hypertension. 4. Moderate aortic stenosis. 5. Coronary artery disease with RCA involvement. PLAN:POD #1, Lap Cholecystectomy 1. Acute cholecystitis and cholelithiasis. 2. Diabetes mellitus type 2, not controlled. Hold glipizide and metformin, start sliding scale insulin. 3. Hypertension, coronary artery disease and moderate aortic stenosis, stable. For details, please refer to the orders. Recheck labs in a.m. Troponin level was 25. Clinically stable for surgery. EKG showed sinus rhythm and no acute ST-T changes. Labs good. spoke with surgical CIRCULATION LIBRARIAN Plan Plan of Care Problems Medical Problems: (1) Acute cholecystitis Status: Acute Comment Review of Relevant I have reviewed the following items emmie (where applicable) has been applied. Labs Laboratory Tests Test 03/29/21 11:29 03/29/21 13:43 03/29/21 16:26 03/29/21 20:16 Glucose (Fingerstick) 163 mg/dL (70-99) 111 mg/dL (70-99) 126 mg/dL (70-99) 180 mg/dL (70-99) Test 03/30/21 05:25 03/30/21 07:37 White Blood Count 12.2 x10^3/uL (4.0-11.0) Red Blood Count 5.29 x10^6/uL (4.30-5.70) Hemoglobin 12.2 g/dL (13.0-17.5) Hematocrit 39.1 % (39.0-53.0) Mean Corpuscular Volume 74 fL (79-100) Mean Corpuscular Hemoglobin 23 pg (25-35) Mean Corpuscular Hemoglobin Concent 31 g/dL (31-37) Red Cell Distribution Width 15.0 % (11.5-14.5) Platelet Count 167 x10^3/uL (140-400) Neutrophils (%) (Auto) 80 % (31-73) Lymphocytes (%) (Auto) 9 % (24-48) Monocytes (%) (Auto) 11 % (0-9) Eosinophils (%) (Auto) 0 % (0-3) Basophils (%) (Auto) 0 % (0-3) Neutrophils # (Auto) 9.8 x10^3/uL (1.8-7.7) Lymphocytes # (Auto) 1.1 x10^3/uL (1.0-4.8) Monocytes # (Auto) 1.3 x10^3/uL (0.0-1.1) Eosinophils # (Auto) 0.0 x10^3/uL (0.0-0.7) Basophils # (Auto) 0.0 x10^3/uL (0.0-0.2) Sodium Level 137 mmol/L (136-145) Potassium Level 4.2 mmol/L (3.5-5.1) Chloride Level 103 mmol/L (98-107) Carbon Dioxide Level 26 mmol/L (21-32) Anion Gap 8 (6-14) Blood Urea Nitrogen 9 mg/dL (8-26) Creatinine 0.8 mg/dL (0.7-1.3) Estimated GFR (Cockcroft-Gault) 117.4 BUN/Creatinine Ratio 11 (6-20) Glucose Level 217 mg/dL (70-99) Calcium Level 9.8 mg/dL (8.5-10.1) Total Bilirubin 0.6 mg/dL (0.2-1.0) Aspartate Amino Transf (AST/SGOT) 30 U/L (15-37) Alanine Aminotransferase (ALT/SGPT) 37 U/L (16-63) Alkaline Phosphatase 80 U/L (46-116) Total Protein 6.9 g/dL (6.4-8.2) Albumin 2.5 g/dL (3.4-5.0) Albumin/Globulin Ratio 0.6 (1.0-1.7) Glucose (Fingerstick) 230 mg/dL (70-99) Medications Current Medications Acetaminophen/ Hydrocodone Bitart (Lortab 5/325) 1 tab PRN Q4HRS PRN PO PAIN Last administered on 03/30/21at 08:25; Start 03/29/21 at 16:15 Bisacodyl (Dulcolax Supp) 10 mg STK-MED ONCE .ROUTE ; Start 03/29/21 at 12:33; Stop 03/29/21 at 12:33; Status DC Bupivacaine HCl/ Epinephrine Bitart (Sensorcain-Epi 0.5% Kit) 30 ml STK-MED ONCE .ROUTE Last administered on 03/29/21at 15:30; Start 03/29/21 at 12:32; Stop 03/29/21 at 12:33; Status DC Cellulose (Surgicel Hemostat 4x8) 1 each STK-MED ONCE .ROUTE ; Start 03/29/21 at 12:33; Stop 03/29/21 at 12:33; Status DC Dexamethasone Sodium Phosphate (Decadron) 4 mg STK-MED ONCE .ROUTE ; Start 03/29/21 at 13:07; Stop 03/29/21 at 13:07; Status DC Dextrose (Dextrose 50%-Water Syringe) 12.5 gm PRN Q15MIN PRN IV SEE COMMENTS; Start 03/29/21 at 16:15 Docusate Sodium (Colace) 100 mg BID PO Last administered on 03/29/21at 21:14; Start 03/29/21 at 21:00 Fentanyl Citrate (Fentanyl 2ml Vial) 25 mcg PRN Q5MIN PRN IVP MILD PAIN 1-3 Last administered on 03/29/21at 18:38; Start 03/29/21 at 14:00; Stop 03/30/21 at 13:59 Fentanyl Citrate (Fentanyl 2ml Vial) 50 mcg PRN Q5MIN PRN IVP MODERATE PAIN 4-6 Last administered on 03/29/21at 16:49; Start 03/29/21 at 14:00; Stop 03/30/21 at 13:59 Fentanyl Citrate (Fentanyl 2ml Vial) 100 mcg STK-MED ONCE .ROUTE ; Start 03/29/21 at 13:07; Stop 03/29/21 at 13:08; Status DC Fentanyl Citrate (Fentanyl 2ml Vial) 100 mcg STK-MED ONCE .ROUTE ; Start 03/29/21 at 16:38; Stop 03/29/21 at 16:38; Status DC Heparin Sodium (Porcine) 1000 unit/Sodium Chloride 1,001 ml @ 1,001 mls/hr 1X ONCE IRR Last administered on 03/29/21at 14:55; Start 03/29/21 at 12:00; Stop 03/29/21 at 12:59; Status DC Hydromorphone HCl (Dilaudid) 0.5 mg PRN Q10MIN PRN IVP SEVERE PAIN 7-10, 2nd CHOICE; Start 03/29/21 at 14:00; Stop 03/30/21 at 13:59 Insulin Human Lispro (HumaLOG VIAL for OP,RR ONLY) 0-10 units PRN Q1HR PRN SQ PER PROTOCOL; Start 03/29/21 at 14:00; Stop 03/30/21 at 13:59 Iohexol (Omnipaque 300 Mg/ml) 50 ml STK-MED ONCE .ROUTE Last administered on 03/29/21at 15:30; Start 03/29/21 at 12:32; Stop 03/29/21 at 12:33; Status DC Lidocaine HCl (Lidocaine Pf 2% Vial) 5 ml STK-MED ONCE .ROUTE ; Start 03/29/21 at 14:09; Stop 03/29/21 at 14:09; Status DC Lidocaine HCl (Xylocaine-Mpf 1% 5ml Vial) 5 ml STK-MED ONCE .ROUTE ; Start 03/29/21 at 13:08; Stop 03/29/21 at 13:08; Status DC Morphine Sulfate (Morphine Sulfate) 1 mg PRN Q10MIN PRN IVP SEVERE PAIN 7-10 Last administered on 03/29/21at 16:58; Start 03/29/21 at 14:00; Stop 03/30/21 at 13:59 Morphine Sulfate (Morphine Sulfate) 2 mg STK-MED ONCE .ROUTE ; Start 03/29/21 at 16:38; Stop 03/29/21 at 16:38; Status DC Naloxone HCl (Narcan) 0.4 mg PRN Q2MIN PRN IV SEE INSTRUCTIONS; Start 03/29/21 at 16:15 Neostigmine [place] (Neostigmine Methylsulfate) 5 mg STK-MED ONCE .ROUTE ; Start 03/29/21 at 16:06; Stop 03/29/21 at 16:06; Status DC Ondansetron HCl (Zofran) 4 mg PRN Q6HRS PRN IVP NAUESA, 1ST CHOICE; Start 03/29/21 at 16:15 Ondansetron HCl (Zofran) 4 mg STK-MED ONCE .ROUTE ; Start 03/29/21 at 13:07; Stop 03/29/21 at 13:08; Status DC Phenylephrine HCl (Leonel-Synephrine Inj) 10 mg STK-MED ONCE .ROUTE ; Start 03/29/21 at 13:51; Stop 03/29/21 at 13:51; Status DC Potassium Chloride/Dextrose/ Sod Cl 1,000 ml @ 125 mls/hr Q8H IV Last administered on 03/30/21at 05:04; Start 03/29/21 at 20:30 Prochlorperazine Edisylate (Compazine) 5 mg PACU PRN PRN IVP NAUSEA, MRX1; Start 03/29/21 at 14:00; Stop 03/30/21 at 13:59 Propofol (Diprivan) 200 mg STK-MED ONCE IV ; Start 03/29/21 at 13:07; Stop 03/29/21 at 13:07; Status DC Ringer's Solution 1,000 ml @ 30 mls/hr Q24H IV Last administered on 03/29/21at 13:57; Start 03/29/21 at 14:00; Stop 03/30/21 at 01:59; Status DC Ringer's Solution 1,000 ml @ 100 mls/hr Q10H IV ; Start 03/29/21 at 16:15 Sevoflurane (Ultane) 60 ml STK-MED ONCE IH ; Start 03/29/21 at 16:10; Stop 03/29/21 at 16:10; Status DC Sodium Chloride 1,000 ml @ 25 mls/hr Q24H IV ; Start 03/29/21 at 16:15 Sodium Chloride (Normal Saline Flush) 3 ml QSHIFT PRN IV AFTER MEDS AND BLOOD DRAWS; Start 03/29/21 at 16:15 Succinylcholine Chloride (Anectine) 200 mg STK-MED ONCE .ROUTE ; Start 03/29/21 at 13:49; Stop 03/29/21 at 13:49; Status DC Vitals/I & O Vital Sign - Last 24 Hours 03/29/21 03/29/21 03/29/21 03/29/21 13:44 16:19 16:19 16:34 Temp 100.8 98.1 100.8 98.1 Pulse 90 73 76 Resp 16 16 16 B/P (MAP) 168/73 135/63 149/80 Pulse Ox 97 100 100 O2 Delivery Room Air Mask Simple Mask Simple Mask O2 Flow Rate 6 6 6 03/29/21 03/29/21 03/29/21 03/29/21 16:41 16:42 16:49 16:49 Pulse 72 Resp 16 16 16 16 B/P (MAP) 146/78 Pulse Ox 100 100 100 100 O2 Delivery Simple Mask Simple Mask Simple Mask Simple Mask O2 Flow Rate 6.0 6.0 6.0 6 03/29/21 03/29/21 03/29/21 03/29/21 16:58 17:04 17:08 17:30 Temp 99.4 97.5 99.4 97.5 Pulse 80 86 Resp 16 16 18 B/P (MAP) 164/72 148/68 (94) Pulse Ox 100 98 96 O2 Delivery Simple Mask Nasal Cannula Room Air Nasal Cannula O2 Flow Rate 6.0 2 2 2.0 03/29/21 03/29/21 03/29/21 03/29/21 17:30 17:30 17:30 17:45 Pulse 85 Resp 19 19 19 18 B/P (MAP) 143/70 (94) Pulse Ox 94 94 93 98 O2 Delivery Nasal Cannula Nasal Cannula Nasal Cannula Nasal Cannula O2 Flow Rate 2.0 2.0 2.0 2.0 03/29/21 03/29/21 03/29/21 03/29/21 18:00 18:15 18:30 18:38 Pulse 84 93 89 Resp 18 20 20 20 B/P (MAP) 149/70 (96) 165/78 (107) 149/79 (102) Pulse Ox 99 98 99 94 O2 Delivery Nasal Cannula Nasal Cannula Nasal Cannula Nasal Cannula O2 Flow Rate 2.0 2.0 2.0 2.0 03/29/21 03/29/21 03/29/21 03/29/21 19:00 19:30 20:00 20:30 Temp 97.8 97.8 Pulse 83 83 81 Resp 20 B/P (MAP) 133/62 (85) 136/64 (88) 131/66 (87) Pulse Ox 100 98 97 O2 Delivery Nasal Cannula Nasal Cannula Nasal Cannula Nasal Cannula O2 Flow Rate 2.0 03/29/21 03/30/21 03/30/21 03/30/21 23:00 03:28 07:00 08:25 Temp 97.3 98.1 97.6 97.3 98.1 97.6 Pulse 89 87 85 Resp 20 20 20 19 B/P (MAP) 115/73 (87) 160/77 (104) 126/63 (84) Pulse Ox 98 97 96 97 O2 Delivery Nasal Cannula Nasal Cannula Nasal Cannula Nasal Cannula O2 Flow Rate 2.0 2.0 Intake and Output 03/29/21 03/29/21 03/30/21 15:00 23:00 07:00 Intake Total 1500 ml Output Total 270 ml 200 ml Balance 1230 ml -200 ml Justifications for Admission Other Justification CAYDEN MYLES MD Mar 30, 2021 11:04
[2021-03-30 15:00] VITALS: BP 116/56
[2021-03-30 19:00] VITALS: BP 91/47
[2021-03-30] MEDS: LACTOBACILLUS RHAMNOSUS GG 1 CAPSULE. PO SCH (20:33)
[2021-03-30 23:00] VITALS: BP 121/54
[2021-03-31] VITALS (7 sets, daily range): BP systolic 96–164; BP diastolic 46–77
[2021-03-31] MEDS: POTASSIUM CL 20MEQ D5-0.45NACL 1,000 ML IV SCH (00:09)
[2021-03-31] MEDS: PIPERACILLIN/TAZOBACTAM 3.375 GM in IV NORMAL SALINE 50ML 50 ML IV SCH ×4 (00:09→17:32)
[2021-03-31] MEDS: HYDROcodone/APAP 5/325MG 1 TAB TABLET PO PRN ×3 (03:54→18:01)
[2021-03-31] MEDS: DOCUSATE SODIUM 100 MG CAPSULE. PO SCH ×2 (08:23→21:04)
[2021-03-31] MEDS: LACTOBACILLUS RHAMNOSUS GG 1 CAPSULE. PO SCH ×2 (08:23→21:04)
--- NOTE | 2021-03-31 08:30 | PDOC ---
SURGICAL PROGRESS NOTE DATE: 03/31/21 TIME: 08:29 Subjective resting low appetite Vital Signs Vital Signs Date Time Temp Pulse Resp B/P (MAP) Pulse Ox O2 Delivery O2 Flow Rate FiO2 03/31/21 03:30 98.1 91 18 158/77 (104) 94 Room Air 98.1 03/30/21 08:25 2.0 I&O Intake and Output 03/31/21 07:00 Output Total 480 ml Balance -480 ml Output Urine Total 450 ml Drainage Total 30 ml # Voids 2 # Bowel Movements 1 General: Alert, Cooperative Abdomen: Soft, Other (drain serosang ) Labs Laboratory Tests Test 03/29/21 11:29 03/29/21 13:43 03/29/21 16:26 03/29/21 20:16 Glucose (Fingerstick) 163 mg/dL (70-99) 111 mg/dL (70-99) 126 mg/dL (70-99) 180 mg/dL (70-99) Test 03/30/21 05:25 03/30/21 07:37 03/30/21 11:26 03/30/21 16:45 White Blood Count 12.2 x10^3/uL (4.0-11.0) Red Blood Count 5.29 x10^6/uL (4.30-5.70) Hemoglobin 12.2 g/dL (13.0-17.5) Hematocrit 39.1 % (39.0-53.0) Mean Corpuscular Volume 74 fL (79-100) Mean Corpuscular Hemoglobin 23 pg (25-35) Mean Corpuscular Hemoglobin Concent 31 g/dL (31-37) Red Cell Distribution Width 15.0 % (11.5-14.5) Platelet Count 167 x10^3/uL (140-400) Neutrophils (%) (Auto) 80 % (31-73) Lymphocytes (%) (Auto) 9 % (24-48) Monocytes (%) (Auto) 11 % (0-9) Eosinophils (%) (Auto) 0 % (0-3) Basophils (%) (Auto) 0 % (0-3) Neutrophils # (Auto) 9.8 x10^3/uL (1.8-7.7) Lymphocytes # (Auto) 1.1 x10^3/uL (1.0-4.8) Monocytes # (Auto) 1.3 x10^3/uL (0.0-1.1) Eosinophils # (Auto) 0.0 x10^3/uL (0.0-0.7) Basophils # (Auto) 0.0 x10^3/uL (0.0-0.2) Sodium Level 137 mmol/L (136-145) Potassium Level 4.2 mmol/L (3.5-5.1) Chloride Level 103 mmol/L (98-107) Carbon Dioxide Level 26 mmol/L (21-32) Anion Gap 8 (6-14) Blood Urea Nitrogen 9 mg/dL (8-26) Creatinine 0.8 mg/dL (0.7-1.3) Estimated GFR (Cockcroft-Gault) 117.4 BUN/Creatinine Ratio 11 (6-20) Glucose Level 217 mg/dL (70-99) Calcium Level 9.8 mg/dL (8.5-10.1) Total Bilirubin 0.6 mg/dL (0.2-1.0) Aspartate Amino Transf (AST/SGOT) 30 U/L (15-37) Alanine Aminotransferase (ALT/SGPT) 37 U/L (16-63) Alkaline Phosphatase 80 U/L (46-116) Total Protein 6.9 g/dL (6.4-8.2) Albumin 2.5 g/dL (3.4-5.0) Albumin/Globulin Ratio 0.6 (1.0-1.7) Glucose (Fingerstick) 230 mg/dL (70-99) 229 mg/dL (70-99) 167 mg/dL (70-99) Test 03/30/21 20:24 03/31/21 07:02 Glucose (Fingerstick) 231 mg/dL (70-99) 185 mg/dL (70-99) Laboratory Tests Test 03/30/21 11:26 03/30/21 16:45 03/30/21 20:24 03/31/21 07:02 Glucose (Fingerstick) 229 mg/dL (70-99) 167 mg/dL (70-99) 231 mg/dL (70-99) 185 mg/dL (70-99) Problem List Problems Medical Problems: (1) Acute cholecystitis Status: Acute Assessment/Plan dc planning will need drain for 1 week Justicifation of Admission Dx: Justifications for Admission: Justification of Admission Dx: N/A NELDA WILLETT APRN Mar 31, 2021 08:30
[2021-03-31] MEDS: INSULIN LISPRO 300 UNITS/3 ML VIAL. SQ SCH ×4 (08:31→21:00)
--- NOTE | 2021-03-31 11:27 | PDOC ---
PROGRESS NOTES Date of Service: DATE: 03/31/21 TIME: 11:23 Subjective Subjective tolerating diet Objective Objective Vital Signs Date Time Temp Pulse Resp B/P (MAP) Pulse Ox O2 Delivery O2 Flow Rate FiO2 03/31/21 08:34 94 Room Air 2.0 03/31/21 07:00 97.7 81 18 115/52 (73) 97.7 Intake and Output 03/31/21 07:00 Output Total 480 ml Balance -480 ml Output Urine Total 450 ml Drainage Total 30 ml # Voids 2 # Bowel Movements 1 Physical Exam Abdomen: Soft, Other (drain serosang ) Extremities: No clubbing, No cyanosis General: Alert, Cooperative HEENT: Atraumatic Lungs: Normal air movement Neuro: Normal speech, Sensation intact Psych/Mental Status: Mental status NL, Mood NL Skin: No rashes, No breakdown COMMENT drain present Diagnosis Problem List Problems Medical Problems: (1) Acute cholecystitis Status: Acute Assessment Assessment 1. Acute cholecystitis with cholelithiasis. 2. Diabetes mellitus type 2, not controlled. Glucose 278. 3. Hypertension. 4. Moderate aortic stenosis. 5. Coronary artery disease with RCA involvement. PLAN:d/c iv fuids. advance diet. ambulate tid ? home in 1-2 days continue Zosyn for now ,labs in am POD #2, Lap Cholecystectomy 1. Acute cholecystitis and cholelithiasis. 2. Diabetes mellitus type 2, not controlled. Hold glipizide and metformin, start sliding scale insulin. 3. Hypertension, coronary artery disease and moderate aortic stenosis, stable. For details, please refer to the orders. Recheck labs in a.m. Troponin level was 25. Clinically stable for surgery. EKG showed sinus rhythm and no acute ST-T changes. Labs good. spoke with surgical RESEARCH PROGRAMMER Plan Plan of Care Problems Medical Problems: (1) Acute cholecystitis Status: Acute Comment Review of Relevant I have reviewed the following items emmie (where applicable) has been applied. Labs Laboratory Tests Test 03/30/21 11:26 03/30/21 16:45 03/30/21 20:24 03/31/21 07:02 Glucose (Fingerstick) 229 mg/dL (70-99) 167 mg/dL (70-99) 231 mg/dL (70-99) 185 mg/dL (70-99) Medications Current Medications Lactobacillus Rhamnosus (Culturelle) 1 cap BID PO Last administered on 03/31/21at 08:23; Start 03/30/21 at 21:00 Vitals/I & O Vital Sign - Last 24 Hours 03/30/21 03/30/21 03/30/21 03/30/21 13:18 13:50 15:00 17:50 Temp 97.7 97.7 Pulse 79 Resp 19 18 20 18 B/P (MAP) 116/56 (76) Pulse Ox 92 92 95 92 O2 Delivery Room Air Room Air Room Air Room Air 03/30/21 03/30/21 03/30/21 03/30/21 18:20 19:00 20:45 23:00 Temp 97.9 98.1 97.9 98.1 Pulse 78 71 Resp 18 20 18 B/P (MAP) 91/47 (62) 121/54 (76) Pulse Ox 92 93 93 O2 Delivery Room Air Room Air Room Air Room Air 03/31/21 03/31/21 03/31/21 03:30 07:00 08:34 Temp 98.1 97.7 98.1 97.7 Pulse 91 81 Resp 18 18 B/P (MAP) 158/77 (104) 115/52 (73) Pulse Ox 94 91 94 O2 Delivery Room Air Room Air Room Air O2 Flow Rate 2.0 Intake and Output 03/30/21 03/30/21 03/31/21 15:00 23:00 07:00 Output Total 30 ml 450 ml Balance -30 ml -450 ml Justifications for Admission Other Justification CAYDEN MYLES MD Mar 31, 2021 11:27
[2021-04-01] MEDS: PIPERACILLIN/TAZOBACTAM 3.375 GM in IV NORMAL SALINE 50ML 50 ML IV SCH ×3 (00:41→12:00)
[2021-04-01 03:00] VITALS: BP 148/69
[2021-04-01 07:00] VITALS: BP 164/73
[2021-04-01] MEDS: INSULIN LISPRO 300 UNITS/3 ML VIAL. SQ SCH ×2 (07:30→12:47)
[2021-04-01 07:50] LABS: BASO % 0 % (0-3); EOS # 0.5 x10^3/uL (0.0-0.7); EOS % 7 % (0-3); HEMATOCRIT 35.2 % (39.0-53.0); LYMPH # 1.2 x10^3/uL (1.0-4.8); LYMPH % 16 % (24-48); MEAN CORPUSCULAR HEMOGLOBIN 23 pg (25-35); MEAN CORPUSCULAR HGB CONC 31 g/dL (31-37); MEAN CORPUSCULAR VOLUME 74 fL (79-100); MONO # 0.8 x10^3/uL (0.0-1.1); MONO % 11 % (0-9); NEUT # 4.8 x10^3/uL (1.8-7.7); NEUT % 65 % (31-73); PLATELET COUNT 185 x10^3/uL (140-400); RED BLOOD COUNT 4.77 x10^6/uL (4.30-5.70); RED CELL DISTRIBUTION WIDTH 14.6 % (11.5-14.5); WHITE BLOOD COUNT 7.4 x10^3/uL (4.0-11.0)
[2021-04-01] MEDS: DOCUSATE SODIUM 100 MG CAPSULE. PO SCH (08:21)
[2021-04-01] MEDS: LACTOBACILLUS RHAMNOSUS GG 1 CAPSULE. PO SCH (08:21)
--- NOTE | 2021-04-01 08:33 | PDOC ---
SURGICAL PROGRESS NOTE DATE: 04/01/21 TIME: 08:32 Subjective doing ok tolerating diet Vital Signs Vital Signs Date Time Temp Pulse Resp B/P (MAP) Pulse Ox O2 Delivery O2 Flow Rate FiO2 04/01/21 03:00 98.1 84 18 148/69 (95) 94 Room Air 98.1 03/31/21 20:00 2.0 I&O Intake and Output 04/01/21 07:00 Intake Total 1190 ml Output Total 35 ml Balance 1155 ml Intake Oral 1190 ml Drainage Total 35 ml # Voids 4 General: Alert, Oriented X3, Cooperative Abdomen: Soft, Other (ND, drain serous ) Labs Laboratory Tests Test 03/30/21 11:26 03/30/21 16:45 03/30/21 20:24 03/31/21 07:02 Glucose (Fingerstick) 229 mg/dL (70-99) 167 mg/dL (70-99) 231 mg/dL (70-99) 185 mg/dL (70-99) Test 03/31/21 11:14 03/31/21 16:14 03/31/21 20:57 04/01/21 07:00 Glucose (Fingerstick) 287 mg/dL (70-99) 208 mg/dL (70-99) 105 mg/dL (70-99) White Blood Count 7.4 x10^3/uL (4.0-11.0) Red Blood Count 4.77 x10^6/uL (4.30-5.70) Hemoglobin 11.0 g/dL (13.0-17.5) Hematocrit 35.2 % (39.0-53.0) Mean Corpuscular Volume 74 fL (79-100) Mean Corpuscular Hemoglobin 23 pg (25-35) Mean Corpuscular Hemoglobin Concent 31 g/dL (31-37) Red Cell Distribution Width 14.6 % (11.5-14.5) Platelet Count 185 x10^3/uL (140-400) Neutrophils (%) (Auto) 65 % (31-73) Lymphocytes (%) (Auto) 16 % (24-48) Monocytes (%) (Auto) 11 % (0-9) Eosinophils (%) (Auto) 7 % (0-3) Basophils (%) (Auto) 0 % (0-3) Neutrophils # (Auto) 4.8 x10^3/uL (1.8-7.7) Lymphocytes # (Auto) 1.2 x10^3/uL (1.0-4.8) Monocytes # (Auto) 0.8 x10^3/uL (0.0-1.1) Eosinophils # (Auto) 0.5 x10^3/uL (0.0-0.7) Basophils # (Auto) 0.0 x10^3/uL (0.0-0.2) Test 04/01/21 07:31 Glucose (Fingerstick) 123 mg/dL (70-99) Laboratory Tests Test 03/31/21 11:14 03/31/21 16:14 03/31/21 20:57 04/01/21 07:00 Glucose (Fingerstick) 287 mg/dL (70-99) 208 mg/dL (70-99) 105 mg/dL (70-99) White Blood Count 7.4 x10^3/uL (4.0-11.0) Red Blood Count 4.77 x10^6/uL (4.30-5.70) Hemoglobin 11.0 g/dL (13.0-17.5) Hematocrit 35.2 % (39.0-53.0) Mean Corpuscular Volume 74 fL (79-100) Mean Corpuscular Hemoglobin 23 pg (25-35) Mean Corpuscular Hemoglobin Concent 31 g/dL (31-37) Red Cell Distribution Width 14.6 % (11.5-14.5) Platelet Count 185 x10^3/uL (140-400) Neutrophils (%) (Auto) 65 % (31-73) Lymphocytes (%) (Auto) 16 % (24-48) Monocytes (%) (Auto) 11 % (0-9) Eosinophils (%) (Auto) 7 % (0-3) Basophils (%) (Auto) 0 % (0-3) Neutrophils # (Auto) 4.8 x10^3/uL (1.8-7.7) Lymphocytes # (Auto) 1.2 x10^3/uL (1.0-4.8) Monocytes # (Auto) 0.8 x10^3/uL (0.0-1.1) Eosinophils # (Auto) 0.5 x10^3/uL (0.0-0.7) Basophils # (Auto) 0.0 x10^3/uL (0.0-0.2) Test 04/01/21 07:31 Glucose (Fingerstick) 123 mg/dL (70-99) Problem List Problems Medical Problems: (1) Acute cholecystitis Status: Acute Assessment/Plan ok to dc per surgery, can remove drain prior to dc FU 2 weeks Justicifation of Admission Dx: Justifications for Admission: Justification of Admission Dx: N/A NELDA WILLETT PLASMA TABLE OPERATOR Apr 01, 2021 08:33
[2021-04-01 11:00] VITALS: BP 110/58
--- NOTE | 2021-04-01 13:32 | PDOC ---
PROGRESS NOTES Date of Service: DATE: 04/01/21 TIME: 13:30 Subjective Subjective feels good ,ready to go home Objective Objective Vital Signs Date Time Temp Pulse Resp B/P (MAP) Pulse Ox O2 Delivery O2 Flow Rate FiO2 04/01/21 11:00 98.7 85 18 110/58 (75) 94 98.7 04/01/21 08:00 Room Air 03/31/21 20:00 2.0 Intake and Output 04/01/21 07:00 Intake Total 1190 ml Output Total 35 ml Balance 1155 ml Intake Oral 1190 ml Drainage Total 35 ml # Voids 4 Physical Exam Abdomen: Soft, Other (ND, drain serous ) Extremities: No clubbing, No cyanosis General: Alert, Oriented X3, Cooperative HEENT: Atraumatic Lungs: Normal air movement Neuro: Normal speech, Sensation intact Psych/Mental Status: Mental status NL, Mood NL Skin: No rashes, No breakdown COMMENT drain present Diagnosis Problem List Problems Medical Problems: (1) Acute cholecystitis Status: Acute Assessment Assessment 1. Acute cholecystitis with cholelithiasis. 2. Diabetes mellitus type 2, not controlled. Glucose 278. 3. Hypertension. 4. Moderate aortic stenosis. 5. Coronary artery disease with RCA involvement. PLAN:d/c drain toady tolerating regular diet. ambulate tid d/c home today spoke with pts sister jeremías/ryne Catherinelito cbc good spoke with Dr Light POD #3, Lap Cholecystectomy 1. Acute cholecystitis and cholelithiasis. 2. Diabetes mellitus type 2, not controlled. Hold glipizide and metformin, start sliding scale insulin. 3. Hypertension, coronary artery disease and moderate aortic stenosis, stable. For details, please refer to the orders. Recheck labs in a.m. Troponin level was 25. Clinically stable for surgery. EKG showed sinus rhythm and no acute ST-T changes. Labs good. spoke with surgical BALLROOM DANCER Plan Plan of Care Problems Medical Problems: (1) Acute cholecystitis Status: Acute Comment Review of Relevant I have reviewed the following items emmie (where applicable) has been applied. Labs Laboratory Tests Test 03/31/21 16:14 03/31/21 20:57 04/01/21 07:00 04/01/21 07:31 Glucose (Fingerstick) 208 mg/dL (70-99) 105 mg/dL (70-99) 123 mg/dL (70-99) White Blood Count 7.4 x10^3/uL (4.0-11.0) Red Blood Count 4.77 x10^6/uL (4.30-5.70) Hemoglobin 11.0 g/dL (13.0-17.5) Hematocrit 35.2 % (39.0-53.0) Mean Corpuscular Volume 74 fL (79-100) Mean Corpuscular Hemoglobin 23 pg (25-35) Mean Corpuscular Hemoglobin Concent 31 g/dL (31-37) Red Cell Distribution Width 14.6 % (11.5-14.5) Platelet Count 185 x10^3/uL (140-400) Neutrophils (%) (Auto) 65 % (31-73) Lymphocytes (%) (Auto) 16 % (24-48) Monocytes (%) (Auto) 11 % (0-9) Eosinophils (%) (Auto) 7 % (0-3) Basophils (%) (Auto) 0 % (0-3) Neutrophils # (Auto) 4.8 x10^3/uL (1.8-7.7) Lymphocytes # (Auto) 1.2 x10^3/uL (1.0-4.8) Monocytes # (Auto) 0.8 x10^3/uL (0.0-1.1) Eosinophils # (Auto) 0.5 x10^3/uL (0.0-0.7) Basophils # (Auto) 0.0 x10^3/uL (0.0-0.2) Test 04/01/21 10:36 Glucose (Fingerstick) 282 mg/dL (70-99) Vitals/I & O Vital Sign - Last 24 Hours 03/31/21 03/31/21 03/31/21 03/31/21 15:00 18:01 19:00 19:00 Temp 98.9 98.1 98.9 98.1 Pulse 87 95 Resp 20 18 B/P (MAP) 96/46 (63) 164/53 (90) Pulse Ox 95 94 94 O2 Delivery Room Air Room Air Room Air Room Air O2 Flow Rate 2.0 03/31/21 03/31/21 04/01/21 04/01/21 20:00 23:00 03:00 07:00 Temp 98.3 98.1 99.1 98.3 98.1 99.1 Pulse 94 84 86 Resp 20 18 16 B/P (MAP) 146/65 (92) 148/69 (95) 164/73 (103) Pulse Ox 92 94 93 O2 Delivery Room Air Room Air Room Air O2 Flow Rate 2.0 04/01/21 04/01/21 08:00 11:00 Temp 98.7 98.7 Pulse 85 Resp 18 B/P (MAP) 110/58 (75) Pulse Ox 94 O2 Delivery Room Air Intake and Output 03/31/21 03/31/21 04/01/21 15:00 23:00 07:00 Intake Total 830 ml 240 ml 120 ml Output Total 35 ml Balance 830 ml 205 ml 120 ml Justifications for Admission Other Justification CAYDEN MYLES MD Apr 01, 2021 13:32
--- NOTE | 2021-04-01 14:11 | NUR ---
Discharge Note: [facility] [address] [place] [address] Discharge instructions and discharge home medications reviewed with Patient and a copy given. All questions have been answered and understanding verbalized. The following instructions and handouts were given: f/u with PCP within two weeks. F/U with Dr. Bates within two weeks. Discontinued lines and drains: Peripheral IV intact. Patient discharged to Home or Self Care with Family Member via Wheelchair.
--- NOTE | 2021-04-02 08:48 | PDOC3 ---
IM DISCHARGE SUMMARY Date of Admission Date of Admission Date of Admission: Mar 28, 2021 at 01:07 Date of Discharge Date of Discharge April 01, 2021 Consults Consults Nelson Garrett MD Procedures Procedures Laparoscopic cholecystectomy with normal cholangiogram on March 29, 2021 Labs Labs Laboratory Tests Test 04/01/21 10:36 Glucose (Fingerstick) 282 mg/dL (70-99) H Brief hospital course Brief hospital course This 65 years old male who has a history of diabetes mellitus, hypertension, and moderate aortic stenosis, started having right upper quadrant and epigastric abdominal pain since Friday morning. Pain continued to get worse and because of the severe pain and vomiting yesterday, the patient came to the emergency room. In the emergency room, WBC count was 13.3, hemoglobin 12.7, sodium 134, potassium 3.9, BUN 10, creatinine 0.9, glucose 278, calcium 10.9, albumin 3.9, lipase 100, AST 20, ALT 42, lactic acid level 1.7. Urinalysis negative other than blood sugar. SARS-CoV-2 antigen and RNA test negative. CT scan of abdomen and pelvis showed cholelithiasis, mild ground glass infiltrates in both bases. Small umbilical and right inguinal hernia. Abdominal ultrasound showed cholelithiasis with gallbladder distention. No pericholecystic fluid or wall thickening. The patient is admitted for acute cholecystitis. For more details regarding the past history, family history, social history, surgical history and other details, please refer to the H&P. 1. Acute cholecystitis and cholelithiasis. Consult Dr. Germain for surgical evaluation and management options such as surgery extensively discussed with the patient. Keep n.p.o., start IV Zosyn, IV fluids, IV morphine p.r.n. for pain. WBC count is decreased to 11.7. Patient has been seen by Dr. Bates who is planning to do surgery today. 2. Diabetes mellitus type 2, not controlled. Hold glipizide and metformin, start sliding scale insulin. 3. Hypertension, coronary artery disease and moderate aortic stenosis, stable. For details, please refer to the orders. Recheck labs in a.m. Troponin level was 25. Clinically stable for surgery. EKG showed sinus rhythm and no acute ST-T changes. Hypokalemia. Replace potassium. Patient underwent laparoscopic cholecystectomy with normal cholangiogram on March 29, 2021, done by Dr. Bates. He was noted to have gangrenous gallbladder. He tolerated the surgery He was discharged home on April 01, 2021. Medications Medications reviewed and reconciled for discharge. Home Meds Reported Medications Lisinopril (LISINOPRIL) 5 Mg Tablet, 5 MG PO DAILY for FOR HYPERTENSION, #30 TAB 0 Refills 09/09/17 Metformin Hcl (METFORMIN HCL) 500 Mg Tablet, 1 TAB PO BID, #60 TAB 3 Refills 05/08/15 Glipizide (GLIPIZIDE) 5 Mg Tablet, 1 TAB PO DAILY, #90 TAB 3 Refills 05/08/15 Discontinued Reported Medications Cetirizine Hcl (ZYRTEC) 10 Mg Tablet, 1 TAB PO DAILY, #30 TAB 5 Refills 09/09/17 Discontinued Scripts Azithromycin (ZITHROMAX) 250 Mg Tablet, 250 MG PO as directed for ANTI-BIOTIC, #6 TAB 0 Refills Take 2 PO x 1 days Then take 1 PO q 24 hour for the next 4 days Prov:KAYDEN CARLTON DO 06/10/19 Prednisone (PREDNISONE) 50 Mg Tablet, 1 TAB PO DAILY, #5 TAB Prov:KAYDEN CARLTON DO 06/10/19 Allergy Allergies Coded Allergies Type Severity Reaction Last Updated Verified No Known Allergies Allergy Unknown 05/08/15 Yes Follow up in 5 days. DISPOSITION: Home Comments Discharge Management - 35 minutes. For other details please refer to discharge instructions Justicifation of Admission Dx: Justifications for Admission: Justification of Admission Dx: N/A ELIAN LEON MD Apr 02, 2021 08:48
== END 2021-04-01 14:11 | disposition home or self-care (01) | DRG 419 ==
LOC: ER 21:01 → 5 SOUTH 03-28 00:25 → OBSVTOIN 03-28 01:07
PROVIDERS: ADMIT Internal Medicine; ATTEND Internal Medicine
PROC: BF101ZZ Fluoroscopy of Bile Ducts using Low Osmolar Contrast (ICD-10-PCS; 2021-03-29)
PROC: 0FT44ZZ Resection of Gallbladder, Percutaneous Endoscopic Approach (ICD-10-PCS; principal; 2021-03-29 15:15)
DX: K80.00 Calculus of gallbladder with acute cholecystitis without obstruction (principal); E11.65 Type 2 diabetes mellitus with hyperglycemia; E78.00 Pure hypercholesterolemia, unspecified; E78.5 Hyperlipidemia, unspecified; E87.6 Hypokalemia; I10 Essential (primary) hypertension; I25.10 Atherosclerotic heart disease of native coronary artery without angina pectoris; I35.0 Nonrheumatic aortic (valve) stenosis; K40.90 Unilateral inguinal hernia, without obstruction or gangrene, not specified as recurrent; K82.8 Other specified diseases of gallbladder; K82.A1 Gangrene of gallbladder in cholecystitis; Z80.3 Family history of malignant neoplasm of breast; Z82.3 Family history of stroke; Z82.49 Family history of ischemic heart disease and other diseases of the circulatory system; Z83.3 Family history of diabetes mellitus; Z79.84 Long term (current) use of oral hypoglycemic drugs; Z20.822 Contact with and (suspected) exposure to COVID-19
CPT/HCPCS: 36415; 74177; 74300; 76705; 80053; 81001; 82962; 83605; 83690; 84484; 85007; 85025; 87426; 93005; 96361; 96374; 96375; A4213; A4223; A4314; A4930; A6219; A6402; C1887; G0379; J0330; J0690; J1100; J1644; J1815; J2270; J2370; J2405; J2543; J2704; J2710; J3010; J3480; J3490; J7030; J7042; J7120; J7121; Q9967; U0003; U0005; 97530-GP; 99285-25; G0378

== ENCOUNTER → 2021-07-25 | Outpatient (CLI) | payer OTHER ==
[2021-07-25 11:46] LABS: BASO % 1 % (0-3); EOS # 0.3 x10^3/uL (0.0-0.7); EOS % 5 % (0-3); HEMATOCRIT 38.9 % (39.0-53.0); HEMOGLOBIN 12.4 g/dL (13.0-17.5); LYMPH # 1.6 x10^3/uL (1.0-4.8); LYMPH % 27 % (24-48); MEAN CORPUSCULAR HEMOGLOBIN 24 pg (25-35); MEAN CORPUSCULAR HGB CONC 32 g/dL (31-37); MEAN CORPUSCULAR VOLUME 74 fL (79-100); MONO # 0.6 x10^3/uL (0.0-1.1); MONO % 10 % (0-9); NEUT # 3.4 x10^3/uL (1.8-7.7); NEUT % 58 % (31-73); PLATELET COUNT 205 x10^3/uL (140-400); RED BLOOD COUNT 5.27 x10^6/uL (4.30-5.70); RED CELL DISTRIBUTION WIDTH 15.9 % (11.5-14.5); WHITE BLOOD COUNT 5.8 x10^3/uL (4.0-11.0)
[2021-07-25 12:05] LABS: ALBUMIN 3.7 g/dL (3.4-5.0); CALCIUM 10.6 mg/dL (8.5-10.1); CREATININE 0.9 mg/dL (0.7-1.3); GFR 102.5; POTASSIUM 4.4 mmol/L (3.5-5.1); TOTAL BILIRUBIN 0.4 mg/dL (0.2-1.0); TOTAL PROTEIN 7.4 g/dL (6.4-8.2)
[2021-07-25 12:07] LABS: CHOLESTEROL/HDL RATIO 3.7
[2021-07-25 22:08] LABS: CREAT RD UR 60.5 mg/dL (Not Estab.); MICROALB RD UR 3.7 ug/mL (Not Estab.)
[2021-07-26 03:10] LABS: HEMOGLOBIN A1C 6.5 % (4.8-5.6)
== END ==
LOC: LAB 11:16
PROVIDERS: ATTEND Internal Medicine
DX: E11.65 Type 2 diabetes mellitus with hyperglycemia (principal)
CPT/HCPCS: 80053; 80061; 82043; 82550; 82570; 83036; 85025

== ENCOUNTER → 2021-08-15 | Outpatient (CLI) | payer OTHER ==
--- NOTE | 2021-08-16 08:18 | CARD ---
MR#: [id number] Date of Study: 08/15/2021 Ordering Physician: ULYSSES DOMINGUEZ, Referring Physician: ULYSSES DOMINGUEZ, Tech: Tiffani RaymondryanAlbert APPROVED REPORT EXAM: Two-dimensional and M-mode echocardiogram with Doppler and color Doppler. Other Information Quality : GoodHR: 82bpm Rhythm : NSR INDICATION Aortic Valve Disease 2D DIMENSIONS RVDd3.1 (2.9-3.5cm)Left Atrium(2D)3.3 (1.6-4.0cm) IVSd1.1 (0.7-1.1cm)Aortic Root(2D)3.1 (2.0-3.7cm) LVDd3.6 (3.9-5.9cm)LVOT Diameter2.1 (1.8-2.4cm) PWd1.4 (0.7-1.1cm)LVDs2.7 (2.5-4.0cm) FS (%) 23.2 %SV25.4 ml LVEF(%)47.4 (>50%) Aortic Valve AoV Peak Abdullahi.426.5cm/sAoV RXQ395.2cm AO Peak GR.72.8mmHgLVOT Peak Abdullahi.101.2cm/s AO Mean GR.42mmHgAVA (VMAX)0.79cm2 DANIELLE (VTI)0.92yl0BN P 1/2 Wihj099zr Mitral Valve MV E Qebjjqxn09.0cm/sMV DECEL [id number] MV A Wpfvfczs02.1cm/sE/A Ratio0.8 Pulmonary Valve PV Peak Qepswafn853.7cm/s Pulmonary Vein S1 Wgtkygdc43.0cm/sD2 Aebxuyhf32.5cm/s PVa [id number] LEFT VENTRICLE The left ventricle is normal size. There is moderate concentric left ventricular hypertrophy. The lef t ventricular systolic function is normal and the ejection fraction is within normal range. The Eject ion Fraction is 50-55%. There is normal LV segmental wall motion. Tissue Doppler imaging reveals abno rmal left ventricular diastolic dysfunction. No left ventricle thrombus noted on this study. There is no ventricular septal defect visualized. There is no left ventricular aneurysm. There is no mass not ed in the left ventricle. RIGHT VENTRICLE The right ventricle is normal size. There is normal right ventricular wall thickness. The right ventr icular systolic function is normal. ATRIA The left atrium is mildly dilated. The right atrium size is normal. The interatrial septum is intact with no evidence for an atrial septal defect or patent foramen ovale as noted on 2-D or Doppler imagi ng. AORTIC VALVE The aortic valve is severely calcified with restricted leaflet motion. Doppler and Color Flow reveale d moderate aortic regurgitation. There is severe valvular aortic stenosis. Calculated aortic valve ar ea is 0.8 cm2 with maximum pressure gradient of 72 mmHg and mean pressure gradient of 41 mmHg. There is no aortic valvular vegetation. MITRAL VALVE The mitral valve leaflets are thickened. There is no evidence of mitral valve prolapse. There is no m itral valve stenosis. There is no mitral valve regurgitation noted. TRICUSPID VALVE The tricuspid valve is normal in structure and function. Doppler and Color Flow revealed trace tricus pid regurgitation. There is no tricuspid valve prolapse or vegetation. There is no tricuspid valve st enosis. PULMONIC VALVE There is no pulmonic valvular regurgitation. There is no pulmonic valvular stenosis. GREAT VESSELS The aortic root is normal in size. The ascending aorta is normal in size. The IVC is normal in size a nd collapses >50% with inspiration. PERICARDIAL EFFUSION There is no pleural effusion. There is no evidence of significant pericardial effusion. Critical Notification Critical Value: No <Conclusion> There is moderate concentric left ventricular hypertrophy. The left ventricular systolic function is normal and the ejection fraction is within normal range. Th e Ejection Fraction is 50-55%. There is normal LV segmental wall motion. There is severe valvular aortic stenosis. Calculated aortic valve area is 0.8 cm2 with maximum press ure gradient of 72 mmHg and mean pressure gradient of 41 mmHg. Signed by : Ulysses Dominguez, Electronically Approved : 08/16/2021 08:18:14
== END ==
LOC: ECHO 10:51
PROVIDERS: ATTEND Internal Medicine Cardiovascular Disease
DX: I08.0 Rheumatic disorders of both mitral and aortic valves (principal)
CPT/HCPCS: 93306; C8929